=== PATIENT | female | born 1995 | race Caucasian/White ===

== ENCOUNTER → 2016-12-17 | Outpatient (CLI) | payer MEDICAID ==
--- NOTE | 2016-12-17 14:32 | Diagnostic Imaging Report ---
EXAMINATION: OB ultrasound. INDICATION: Small for gestational age. FINDINGS: heart rate is 158 beats per minute. The placenta is posterior. No placenta previa. EARL is 9.8 cm. The position is cephalic. The growth parameters are: Biparietal diameter: 36 weeks one day. Head circumference: 36 weeks 2 days. Abdominal circumference: 37 weeks 2 days. Femur length: 35 weeks 0 day. These average at: 36 weeks 2 days. This is normal for gestational age of 35 weeks and 2 days based on AIDE of 01/19/[address] Parkinson. IMPRESSION: Live intrauterine . Dictated by: Dictated on workstation # [id number]
== END ==
LOC: RAD 12:08
PROVIDERS: ATTEND Obstetrics & Gynecology
DX: O26.843 Uterine size-date discrepancy, third trimester (principal); Z3A.36 36 weeks gestation of pregnancy
CPT/HCPCS: 76805

== ENCOUNTER 2017-01-18 14:00 | Outpatient (CLI) | payer MEDICAID ==
[~2017-01-18] VITALS: Ht 167.6 cm; Wt 85.3 kg
[2017-01-18] MEDS ORDERED: PREN1TAB86 PO (14:17)
[2017-01-18 14:20] VITALS: BP 123/70
[2017-01-18 14:24] LABS: BILIRUBIN,URINE NEGATIVE (NEGATIVE); KETONES,URINE NEGATIVE (NEGATIVE); LEUKOCYTE ESTERASE ,URINE NEGATIVE (NEGATIVE); NITRITE,URINE NEGATIVE (NEGATIVE); PH,URINE 7 (5-9); PROTEIN,URINE NEGATIVE (NEGATIVE); UROBILINOGEN,URINE NORMAL (NORMAL)
[2017-01-18 14:35] LABS: SQUAMOUS EPITHELIAL CELL,UR 0-2 /HPF; WBC,URINE 0-2 /HPF
--- NOTE | 2017-01-21 14:47 | Physician Query-Final Dx ---
BRANDYN WOMACK 01/21/17 1447: Clinic Account Progress/Dx Physician Query: Please give diagnosis Date of Service January 18, 2017 at 14:00 DARRON STILES DO 01/22/17 1802: Clinic Account Progress/Dx DIAGNOSIS: Diagnosis threatened labor, third trimester, not delivered history of hsv BRANDYN WOMACK January 21, 2017 14:47 DARRON STILES DO January 22, 2017 18:02
== END 2017-01-18 16:25 | disposition home or self-care (01) ==
LOC: LDRP 14:00 → WSo 14:00
PROVIDERS: ATTEND Obstetrics & Gynecology
DX: O47.1 False labor at or after 37 completed weeks of gestation (principal); O98.313 Other infections with a predominantly sexual mode of transmission complicating pregnancy, third trimester; A60.09 Herpesviral infection of other urogenital tract; Z3A.39 39 weeks gestation of pregnancy
CPT/HCPCS: 81000; 99213

== ENCOUNTER 2017-01-19 23:14 | Inpatient (IN) | payer MEDICAID ==
[~2017-01-19] VITALS: Ht 167.6 cm; Wt 83.9 kg
[~2017-01-19 23:14] MED LIST: PREN1TAB86 PO
[2017-01-19] MEDS ORDERED: D5 LR IV SOLUTION 1,000 ML IV ONE (23:37)
[2017-01-20] VITALS (51 sets, daily range): BP systolic 115–167; BP diastolic 60–109
[2017-01-20] MEDS ORDERED: NS (IVPB) 50 ML ONE ×2 (00:04→04:51)
[2017-01-20] MEDS ORDERED: AMPICILLIN 2000 MG INJECTION (IM/IV) ONE (00:04)
[2017-01-20] MEDS ORDERED: AMPICILLIN INJECTION 2,000 MG in NS (IVPB) 50 ML IV SCH (00:05)
[2017-01-20] MEDS ORDERED: MINERAL OIL CONCENTRATE 99.9% 15 ML UDC TOP PRN (00:15)
[2017-01-20 00:35] LABS: BILIRUBIN,URINE NEGATIVE (NEGATIVE); KETONES,URINE 2+ (NEGATIVE); LEUKOCYTE ESTERASE ,URINE 1+ (NEGATIVE); NITRITE,URINE NEGATIVE (NEGATIVE); PH,URINE 7 (5-9); PROTEIN,URINE 1+ (NEGATIVE); UROBILINOGEN,URINE NORMAL (NORMAL)
[2017-01-20 01:03] LABS: BASOPHILS % (AUTO) 0 % (0-10); EOSINOPHILS % (AUTO) 0 % (0-10); LYMPHOCYTES # (AUTO) 2.2 X 10^3 (1.0-4.0); LYMPHOCYTES % (AUTO) 16 % (12-44); MEAN CORPUSCULAR HEMOGLOBIN 30 PG (25-34); MEAN CORPUSCULAR HGB CONC 33 G/DL (32-36); MEAN CORPUSCULAR VOLUME 91 FL (80-99); MONOCYTES % (AUTO) 7 % (0-12); NEUTROPHILS # (AUTO) 10.7 X 10^3 (1.8-7.8); NEUTROPHILS % (AUTO) 77 % (42-75); PLATELET COUNT 225 10^3/uL (130-400); RED BLOOD COUNT 4.24 10^6/uL (4.35-5.85); RED CELL DISTRIBUTION WIDTH 13.3 % (10.0-14.5)
[2017-01-20 01:04] LABS: WHITE BLOOD COUNT 13.9 10^3/uL (4.3-11.0)
[2017-01-20] MEDS ORDERED: ACYC400T PO (01:54)
[2017-01-20] MEDS ORDERED: AMPICILLIN 1000 MG INJECTION (IV/IM) ONE (04:51)
[2017-01-20] MEDS: AMPICILLIN INJECTION 1,000 MG in NS (IVPB) 50 ML IV SCH ×3 (04:58→12:15)
[2017-01-20] MEDS ORDERED: fentaNYL INJECTION 100 MCG/2 ML AMP IVP PRN (05:15)
[2017-01-20] MEDS ORDERED: PROMETHAZINE INJ 25 MG/ML (PHENERGAN) AMP IVP PRN (05:15)
[2017-01-20] MEDS ORDERED: CATHETER FLUSH 10 ML SYR IV SCH ×2 (06:00→14:00)
[2017-01-20] MEDS ORDERED: SUFENTA 0.6MCG/ML BUPIVA 0.125 100 ML ONE (07:34)
[2017-01-20] MEDS ORDERED: fentaNYL INJECTION 100 MCG/2 ML AMP ONE (07:43)
[2017-01-20] MEDS ORDERED: LIDOCAINE PF 2% 10 ML (XYLOCAINE) AMP ONE (07:43)
[2017-01-20] MEDS ORDERED: BUPIVACAINE 0.25% 30 ML (SENSORCAINE) VIAL ONE (07:43)
[2017-01-20] MEDS: D5 LR IV SOLUTION 1,000 ML IV SCH ×2 (08:05→09:21)
[2017-01-20] MEDS ORDERED: LACTATED RINGERS 1,000 ML IV ONE ×2 (10:54)
[2017-01-20] MEDS ORDERED: fentaNYL INJECTION 100 MCG/2 ML AMP INJ ONE (11:00)
[2017-01-20] MEDS ORDERED: BUPIVACAINE 0.25% 30 ML (SENSORCAINE) VIAL INJ ONE (11:00)
[2017-01-20] MEDS ORDERED: LIDOCAINE PF 2% 10 ML (XYLOCAINE) AMP INJ ONE (11:00)
[2017-01-20] MEDS ORDERED: EPIDURAL (SUFENTA 0.6MCG/ML BUPIVA 0.125%) 100 ML BAG EPI PRN (11:00)
[2017-01-20] MEDS ORDERED: ONDANSETRON 4 MG/2 ML (SDV) Z0FRAN IV PRN (11:00)
[2017-01-20] MEDS ORDERED: NALOXONE 0.4 MG/ML 1 ML (NARCAN) VIAL IV PRN (11:00)
--- NOTE | 2017-01-20 11:01 | History & Physical-OB ---
OB - Chief Complaint & HPI Date Date of Admission: Date of Admission: January 19, 2017 at 11:33 pm Chief Complaint/History OB-Reason for Admission/Chief: Onset of Labor Hx : 1 Hx Para: 0 Expected Date of Delivery: January 18, 2017 Gestational Age in Weeks: 40 Gestational Age in Days: 2 Other reason for admission: Patient presents with complaint of contractions. She was seen on 01/18/17 and found to not have change in her cervix and was sent home. There was some question of active lesion on the vulva. she has a history of HSV 2. she had an outbreak in early December but did not know that this was HSV. Had serology and + HSV IgG. She has been on Acyclovir since 01/01/17. (36 weeks) for suppression. Has not had another outbreak but felt something in a different area (on the right nearer the anus) but on exam there is no evidence of active lesion. I cannot see a lesion in the area she is concerned about. Admission Nurse Assessment Rev: Yes Other O+, - VDRL NR HIV - HbSAg - Rub I HSV 2 + (family and SO do not know this) Chlamydia +, treated and LEXIE -, genprobe in third trimester negative GBS + Allergies and Home Medications Allergies Coded Allergies: No Known Drug Allergies (Unverified , 01/18/17) Home Medications Acyclovir 400 Mg Tablet, 400 MG PO TID, (Reported) Vit W-Ca,Fe,FA(<1 mg) 1 Each Tablet, 1 TAB PO DAILY, (Reported) OB - History Hx of Present Care: Yes Ultrasounds: Normal mid trimester US Obstetrical Complications: None Medical Complications: None Information Induced Hypertension: No Maternal Gestational Diabetes: No Hemorrhage: No Obstetrical History Hx : 1 Delivery History Adverse Rxn to Tranfusion: No Patient Past Medical History see above Social History/Family History HIV/AIDS: No Recent Infectious Disease Expo: No Sexually Transmitted Disease: Yes (hsv, chlamydia this preg that was tx) Alcohol Use: Denies Use Recreational Drug Use: No Smoking Cessation: Never smoker Significant Family Hx none Immunizations Hepatitis A: Yes Hepatitis B: Yes Tetanus Booster (TDap): Less than 5yrs (11/07/16) Rubella: immune RPR/VDRL: Negative GBS Status: Positive HBsAG: Negative OB - Admission Exam Physical Exam Vitals: Vital Signs 01/20/17 01/20/17 08:00 10:05 Temp 97.8 Pulse 94 Resp 18 B/P (MAP) 116/68 Pulse Ox 99 Heart: Rhythm Normal Lungs: Clear Abdomen: Gravid Extremities: Normal Reflexes: Normal Cervical Dilatation: 3cm Effacement: 75% Station: -2 Membranes: Intact Heart Rate: 140's Accelerations: Accelerations Present Decelerations: No Decelerations Short Term Variability: Present Nursing Home Variability: Average (6-25) Contractions on Admission: 6-10 Minutes Apart Intensity: Moderate Labs Laboratory Tests Test 01/19/17 23:30 01/20/17 00:10 Range/Units Urine Color YELLOW Urine Clarity CLEAR Urine pH 7 5-9 Urine Specific [place] 1.015 L 1.016-1.022 Urine Protein 1+ H NEGATIVE Urine Glucose (UA) NEGATIVE NEGATIVE Urine Ketones 2+ H NEGATIVE Urine Nitrite NEGATIVE NEGATIVE Urine Bilirubin NEGATIVE NEGATIVE Urine Urobilinogen NORMAL NORMAL MG/DL Urine Leukocyte Esterase 1+ H NEGATIVE Urine RBC (Auto) NEGATIVE NEGATIVE Urine RBC NONE /HPF Urine WBC 5-10 H /HPF Urine Squamous Epithelial Cells 5-10 /HPF Urine Crystals NONE /LPF Urine Bacteria FEW H /HPF Urine Casts NONE /LPF Urine Mucus SMALL H /LPF Urine Culture Indicated YES White Blood Count 13.9 H 4.3-11.0 10^3/uL Red Blood Count 4.24 L 4.35-5.85 10^6/uL Hemoglobin 12.7 11.5-16.0 G/DL Hematocrit 38 35-52 % Mean Corpuscular Volume 91 80-99 FL Mean Corpuscular Hemoglobin 30 25-34 PG Mean Corpuscular Hemoglobin Concent 33 32-36 G/DL Red Cell Distribution Width 13.3 10.0-14.5 % Platelet Count 225 130-400 10^3/uL Mean Platelet Volume 13.0 H 7.4-10.4 FL Neutrophils (%) (Auto) 77 H 42-75 % Lymphocytes (%) (Auto) 16 12-44 % Monocytes (%) (Auto) 7 0-12 % Eosinophils (%) (Auto) 0 0-10 % Basophils (%) (Auto) 0 0-10 % Neutrophils # (Auto) 10.7 H 1.8-7.8 X 10^3 Lymphocytes # (Auto) 2.2 1.0-4.0 X 10^3 Monocytes # (Auto) 1.0 0.0-1.0 X 10^3 Eosinophils # (Auto) 0.0 0.0-0.3 10^3/uL Basophils # (Auto) 0.0 0.0-0.1 10^3/uL OB - Assessment/Plan/Diagnosis Assessment Assessment: active labor, group B positive strep Plan Plan: Expectant Management, Induction (Patient of Dr. Parkinson), Other ( Anticipate . Zen Su. Will use nlp this . HIstory of HSV with prophylaxis (on acyclovir). No outbreak since early 01/08. no acute lesions, GBS + (start Ampicillin). ) DARRON STILES DO January 20, 2017 11:01 am
[2017-01-20] MEDS ORDERED: OXYTOCIN/NORMAL SALINE 500 ML IV SCH ×2 (11:06→13:35)
[2017-01-20] MEDS ORDERED: LIDOCAINE/EPI 1%-1:200,000 (XYLOCAINE) 30 ML VIAL ONE (13:14)
--- NOTE | 2017-01-20 13:38 | OB Labor & Delivery Record ---
Vag Delivery Note Vag Delivery Note Date of Delivery: 01/20/17 Preoperative Diagnosis: Sonia Fink is a (22 /Para 1 / 0, Gestational Age 40 2/7 weeks, labor, h/o HSV ( on suppressive treatment; no active lesions), GBS + Postoperative Diagnosis: Same Surgeon: DARRON STILES Anesthesia: epidural Delivery Type: vaginal Findings: Viable male infant, apgars 8/9, weight 8#2oz Lacerations: left anterior vaginal, repaired; right anterior vaginal, not repaired, perineal abrasion, not repaired. Intact placenta with 3 vessel cord. Nuchal cord x 1 reduced , no body cord or shoulder dystocia Estimated Blood Loss: 150 ml Complications: None Condition: Stable Description of Procedure: The patient is a now at 40 2/7 weeks who presented in spontaneous labor. She was admitted and informed consent was obtained. Her labor course was remarkable for ampicillin for GBs prophylaxis, epidural placement, AROM at 7 cm dilation, pitocin augmentation at 9 + cm dilation. She progressed to complete dilatation and began to push. She was then set up for delivery. The infant's head was delivered atraumatically in the AZALEA compound presentation (the left fist at the right shoulder). The shoulders and remainder of the 's body were then delivered without difficulty. The nuchal cord was reduced. Upon delivery, the head was held below the level of the perineum and the mouth and nares were bulb suctioned. The cord was doubly clamped and cut and the was handed off to the pediatric staff. An intact placenta with 3-vessel cord delivered via Ronnie and there was found to be minimal bleeding.~ Vigorous fundal massage was performed and the fundus was found to be firm. IV oxytocin was given. Examination of the vagina and perineum revealed a left anterior vaginal aceration repaired in the usual fashion with 3-0 vicryl suture. Other lacerations, listed above, were not repaired. Following the repair, sponge, instrument and needle counts were correct. Mom and baby were both in stable condition in the labor suite. Vitals - Labs Vital Signs - I&O Vital Signs Date Time Temp Pulse Resp B/P (MAP) Pulse Ox O2 Delivery O2 Flow Rate FiO2 01/20/17 12:15 101 16 128/72 100 01/20/17 12:00 109 16 128/72 100 01/20/17 11:45 90 18 130/84 100 01/20/17 11:30 95 18 130/89 100 01/20/17 11:15 112 18 135/81 99 01/20/17 11:00 92 18 116/64 98 01/20/17 10:45 96 20 121/69 98 01/20/17 10:30 82 20 123/61 98 01/20/17 10:15 85 18 121/68 99 01/20/17 10:05 94 18 116/68 99 01/20/17 10:00 96 18 125/73 100 01/20/17 09:45 99 18 148/81 98 01/20/17 09:30 102 18 127/80 98 01/20/17 09:25 103 18 127/81 98 01/20/17 09:20 93 18 129/80 98 01/20/17 09:00 83 18 124/77 98 01/20/17 08:45 103 18 129/61 97 01/20/17 08:40 81 18 115/65 97 01/20/17 08:35 81 16 120/67 97 01/20/17 08:30 101 16 129/77 99 01/20/17 08:25 91 16 127/84 99 01/20/17 08:20 97 18 120/66 99 01/20/17 08:17 79 18 118/60 99 01/20/17 08:12 98 18 134/68 97 01/20/17 08:08 102 18 134/61 98 01/20/17 08:03 90 18 133/67 98 01/20/17 08:00 97.8 82 20 135/77 98 01/20/17 07:56 92 18 141/76 99 01/20/17 07:52 88 18 145/82 99 01/20/17 07:30 93 18 167/80 01/20/17 03:00 63 18 134/72 01/20/17 02:00 63 18 147/81 01/20/17 01:00 57 18 133/94 01/20/17 00:00 98.7 65 18 131/76 Labs Laboratory Tests 01/19/17 23:30: Urine Color YELLOW, Urine Clarity CLEAR, Urine pH 7, Urine Specific [place] 1.015L, Urine Protein 1+H, Urine Glucose (UA) NEGATIVE, Urine Ketones 2+H, Urine Nitrite NEGATIVE, Urine Bilirubin NEGATIVE, Urine Urobilinogen NORMAL, Urine Leukocyte Esterase 1+H, Urine RBC (Auto) NEGATIVE, Urine RBC NONE, Urine WBC 5-10H, Urine Squamous Epithelial Cells 5-10, Urine Crystals NONE, Urine Bacteria FEWH, Urine Casts NONE, Urine Mucus SMALLH, Urine Culture Indicated YES 01/20/17 00:10: White Blood Count 13.9H, Red Blood Count 4.24L, Hemoglobin 12.7, Hematocrit 38, Mean Corpuscular Volume 91, Mean Corpuscular Hemoglobin 30, Mean Corpuscular Hemoglobin Concent 33, Red Cell Distribution Width 13.3, Platelet Count 225, Mean Platelet Volume 13.0H, Neutrophils (%) (Auto) 77H, Lymphocytes (%) (Auto) 16, Monocytes (%) (Auto) 7, Eosinophils (%) (Auto) 0, Basophils (%) (Auto) 0, Neutrophils # (Auto) 10.7H, Lymphocytes # (Auto) 2.2, Monocytes # (Auto) 1.0, Eosinophils # (Auto) 0.0, Basophils # (Auto) 0.0 DARRON STILES DO January 20, 2017 13:38
[2017-01-20] MEDS ORDERED: BENZOCAINE/MENTHOL (DERMOPLAST) 56 ML CAN TP PRN (13:45)
[2017-01-20] MEDS ORDERED: MEASLES,MUMPS,RUBELLA 1 EA INJ SQ ONE (13:45)
[2017-01-20] MEDS ORDERED: WITCH HAZEL(TUCKS) 40 EA JAR TOP PRN (13:45)
[2017-01-20] MEDS ORDERED: TETANUS,DIPTH,PERTUSS P/F (BOOSTRIX) 0.5 ML VIAL IM ONE (13:45)
[2017-01-20] MEDS ORDERED: DIBUCAINE (NUPERCAINAL) 1% OINT 30 GM TOP PRN (13:45)
[2017-01-20] MEDS: IBUPROFEN 600 MG (MOTRIN) TAB PO SCH ×2 (14:30→19:55)
[2017-01-20] MEDS: DOCUSATE SODIUM 100 MG (COLACE) CAP PO SCH (19:55)
[2017-01-21] MEDS: IBUPROFEN 600 MG (MOTRIN) TAB PO SCH ×4 (01:20→21:50)
[2017-01-21 04:35] VITALS: BP 122/76
[2017-01-21 06:06] LABS: BASOPHILS % (AUTO) 0 % (0-10); EOSINOPHILS # (AUTO) 0.1 10^3/uL (0.0-0.3); EOSINOPHILS % (AUTO) 1 % (0-10); LYMPHOCYTES # (AUTO) 2.1 X 10^3 (1.0-4.0); LYMPHOCYTES % (AUTO) 19 % (12-44); MEAN CORPUSCULAR HEMOGLOBIN 30 PG (25-34); MEAN CORPUSCULAR HGB CONC 32 G/DL (32-36); MEAN CORPUSCULAR VOLUME 93 FL (80-99); MEAN PLATELET VOLUME 12.3 FL (7.4-10.4); MONOCYTES # (AUTO) 0.9 X 10^3 (0.0-1.0); MONOCYTES % (AUTO) 8 % (0-12); NEUTROPHILS % (AUTO) 72 % (42-75); PLATELET COUNT 173 10^3/uL (130-400); RED BLOOD COUNT 3.52 10^6/uL (4.35-5.85); RED CELL DISTRIBUTION WIDTH 13.6 % (10.0-14.5); WHITE BLOOD COUNT 11.2 10^3/uL (4.3-11.0)
[2017-01-21 08:30] VITALS: BP 119/78
[2017-01-21] MEDS: FERROUS SULF 325 MG (IRON) TAB PO SCH (08:37)
[2017-01-21] MEDS: DOCUSATE SODIUM 100 MG (COLACE) CAP PO SCH ×2 (08:38→21:50)
[2017-01-21] MEDS: PRENATAL VITAMIN 1 EA TAB PO SCH (08:38)
[2017-01-21 12:00] VITALS: BP 106/56
[2017-01-21 15:45] VITALS: BP 115/73
[2017-01-21 20:00] VITALS: BP 130/78
[2017-01-22] MEDS: IBUPROFEN 600 MG (MOTRIN) TAB PO SCH ×2 (03:34→10:53)
[2017-01-22 03:39] VITALS: BP 125/86
[2017-01-22 08:15] VITALS: BP 120/76
[2017-01-22] MEDS: PRENATAL VITAMIN 1 EA TAB PO SCH (08:17)
[2017-01-22] MEDS: DOCUSATE SODIUM 100 MG (COLACE) CAP PO SCH (08:17)
[2017-01-22] MEDS: FERROUS SULF 325 MG (IRON) TAB PO SCH (08:17)
[2017-01-22] MEDS ORDERED: IBUP-1773 PO (08:19)
[2017-01-22] MEDS ORDERED: FERR-74 PO (08:19)
[2017-01-22] MEDS ORDERED: DOCU100C37 PO (08:19)
--- NOTE | 2017-01-22 08:20 | Discharge Inst-Women's Service ---
Discharge Inst-Women's Serv Depart Medication/Instructions New, Converted or Re-Newed RX: RX on Chart Final Diagnosis TIUP, active labor, Consults/Follow Up Additional Follow Up: Yes Orders/Referrals [address] Parkinson Activity Activity: Activity as Tolerated Driving Instructions: You May Drive NO SMOKING: NO SMOKING Nothing Inside Vagina: No Douching, No [place], No Tampons Diet Discharge Diet: No Restrictions Symptoms to Report to : Bleeding Excessive, Pain Increased, Fever Over 101 Degrees F, Pain/Pressure in Chest, Vaginal Bleeding Increase, Dizziness/Fainting , Nausea/Vomiting, Shortness of Breath For Any Problems or Questions: Contact Your Physician VIVIANA PARKINSON MD January 22, 2017 08:20
--- NOTE | 2017-01-22 08:24 | Postpartum Progress Note ---
Note Note Day # 2 Subjective: Patient is without complaints. Ambulating, voiding. Tolerating a regular diet without nausea or vomiting. Normal lochia. Pain is well controlled with oral pain medications. Breast feeding. Objective: VS - Last 72 Hours, by Label 01/20/17 01/20/17 01/20/17 01/20/17 00:00 01:00 02:00 03:00 Temp 98.7 Pulse 65 57 63 63 Resp 18 18 18 18 B/P (MAP) 131/76 133/94 147/81 134/72 01/20/17 01/20/17 01/20/17 01/20/17 04:00 05:00 06:00 07:00 Temp 98.1 Pulse 61 65 52 64 Resp 18 18 18 18 B/P (MAP) 141/84 132/78 142/90 150/72 01/20/17 01/20/17 01/20/17 01/20/17 07:30 07:52 07:56 08:00 Temp 97.8 Pulse 93 88 92 82 Resp 18 18 18 20 B/P (MAP) 167/80 145/82 141/76 135/77 Pulse Ox 99 99 98 01/20/17 01/20/17 01/20/17 01/20/17 08:03 08:08 08:12 08:17 Pulse 90 102 98 79 Resp 18 18 18 18 B/P (MAP) 133/67 134/61 134/68 118/60 Pulse Ox 98 98 97 99 01/20/17 01/20/17 01/20/17 01/20/17 08:20 08:25 08:30 08:35 Pulse 97 91 101 81 Resp 18 16 16 16 B/P (MAP) 120/66 127/84 129/77 120/67 Pulse Ox 99 99 99 97 01/20/17 01/20/17 01/20/17 01/20/17 08:40 08:45 09:00 09:20 Pulse 81 103 83 93 Resp 18 18 18 18 B/P (MAP) 115/65 129/61 124/77 129/80 Pulse Ox 97 97 98 98 01/20/17 01/20/17 01/20/17 01/20/17 09:25 09:30 09:45 10:00 Pulse 103 102 99 96 Resp 18 18 18 18 B/P (MAP) 127/81 127/80 148/81 125/73 Pulse Ox 98 98 98 100 01/20/17 01/20/17 01/20/17 01/20/17 10:05 10:15 10:30 10:45 Pulse 94 85 82 96 Resp 18 18 20 20 B/P (MAP) 116/68 121/68 123/61 121/69 Pulse Ox 99 99 98 98 01/20/17 01/20/17 01/20/17 01/20/17 11:00 11:15 11:30 11:45 Pulse 92 112 95 90 Resp 18 18 18 18 B/P (MAP) 116/64 135/81 130/89 130/84 Pulse Ox 98 99 100 100 01/20/17 01/20/17 01/20/17 01/20/17 12:00 12:15 12:30 12:45 Pulse 109 101 81 100 Resp 16 16 18 18 B/P (MAP) 128/72 128/72 129/75 130/76 Pulse Ox 100 100 100 100 01/20/17 01/20/17 01/20/17 01/20/17 13:00 13:15 13:30 13:50 Temp 100.0 100.3 100.2 Pulse 92 181 126 106 Resp 20 20 20 20 B/P (MAP) 153/93 162/109 137/63 132/76 Pulse Ox 100 01/20/17 01/20/17 01/20/17 01/20/17 14:05 14:20 14:35 14:50 Temp 100.1 Pulse 107 105 97 96 Resp 20 20 20 20 B/P (MAP) 134/72 138/71 137/63 128/66 01/20/17 01/20/17 01/20/17 01/21/17 15:20 19:55 23:20 04:35 Temp 100.4 97.4 97.4 97.1 Pulse 97 89 72 70 Resp 20 20 20 20 B/P (MAP) 135/94 116/79 119/71 122/76 Pulse Ox 98 98 99 01/21/17 01/21/17 01/21/17 01/21/17 08:30 12:00 15:45 20:00 Temp 98.0 98.8 97.1 97.9 Pulse 69 73 68 67 Resp 18 18 20 18 B/P (MAP) 119/78 106/56 115/73 130/78 Pulse Ox 100 97 98 100 01/22/17 03:39 Temp 98.0 Pulse 64 Resp 18 B/P (MAP) 125/86 Pulse Ox 100 Physical Exam: General - Alert and oriented, no apparent distress Abdomen - Soft, appropriately tender to palpation, non-distended, fundus firm at umbilicus Extremities - no edema, negative Jennie's bilaterally Assessment: 21 y/o post- day # 2, status post spontaneous vaginal delivery. Recovering well, hemodynamically stable Acute blood loss anemia Hgb 10.6 Elevated BPs in labor but normalized since Plan: Routine care. Encourage breast feeding. Encourage ambulation. Ferrous sulfate supplementation. Plan for discharge today, f/u in 6 weeks Vitals - Labs Vital Signs - I&O Vital Signs Date Time Temp Pulse Resp B/P (MAP) Pulse Ox O2 Delivery O2 Flow Rate FiO2 01/22/17 03:39 98.0 64 18 125/86 100 01/21/17 20:00 97.9 67 18 130/78 100 01/21/17 15:45 97.1 68 20 115/73 98 01/21/17 12:00 98.8 73 18 106/56 97 01/21/17 08:30 98.0 69 18 119/78 100 Labs Microbiology 01/19/17 Urine Culture - Preliminary, Resulted VIVIANA DURÁN MD January 22, 2017 08:23
[2017-01-22 11:05] VITALS: BP 120/76
== END 2017-01-22 11:05 | disposition home or self-care (01) | DRG 774 ==
LOC: WSo 23:14 → LDRP 23:14 → WSo 23:33 → LDRP 23:33
PROVIDERS: ADMIT Obstetrics & Gynecology; ATTEND Obstetrics & Gynecology
PROC: 10E0XZZ Delivery of Products of Conception, External Approach (ICD-10-PCS; principal; 2017-01-20)
PROC: 0HQ9XZZ Repair Perineum Skin, External Approach (ICD-10-PCS; 2017-01-20)
DX: O98.32 Other infections with a predominantly sexual mode of transmission complicating childbirth (principal); A60.09 Herpesviral infection of other urogenital tract; O99.824 Streptococcus B carrier state complicating childbirth; O70.0 First degree perineal laceration during delivery; O69.81X0 Labor and delivery complicated by cord around neck, without compression, not applicable or unspecified; Z37.0 Single live birth; Z3A.40 40 weeks gestation of pregnancy
CPT/HCPCS: 36415; 81000; 85025; 86850; 86900; 86901; 87088; 99212

== ENCOUNTER 2017-05-01 12:26 | Emergency (ER) | payer SELFPAY ==
[~2017-05-01] VITALS: Ht 167.6 cm; Wt 73.5 kg
[~2017-05-01 12:26] MED LIST changes: +ACYC400T PO; +DOCU100C37 PO; +FERR-74 PO; +IBUP-1773 PO
--- NOTE | 2017-05-01 13:23 | ED Cardiac General ---
History of Present Illness General Chief Complaint: Cardiac/General Problems Stated Complaint: CP/HEART RACING/IRREGULAR HEART BEAT/FATUIGUE Nursing Triage Note: PT REPORTS PALPITATIONS INTERMITTENTLY SINCE TUES EVENING. SHE ALSO C/O SOA AND CP. PT IS 3 MOS POST VAGINAL DELIVERY. SHE DENIES PAIN AT THIS TIME. Source: patient Exam Limitations: no limitations History of Present Illness Time seen by provider: 13:19 Initial Comments Patient presents to ER by private conveyance with a chief complaint of approximately 4 days of heart palpitations and feeling like her heart races for a few seconds at a time and now some chest soreness and achiness. She has no primary history of cardiac. She delivered vaginally about 3 months ago after an uneventful . She is not on any kind of control only vitamins and she quit breast-feeding approximate one half weeks ago. She says she had a history of anxiety when she was a child but did not have any formal workup or take anything for it. She's not had any problems since then. No depression anhedonia, or suicidal ideation. She does not smoke drink or use any kind of illicit drugs. She does not have a primary history of coronary disease in her principal family however she has an uncle who had some kind of electrical aberrant heart problem. She's never been worked up for this before. She does not have a PCP as she recently moved from [place] and transferred her OB care to Dr. Aguilar who delivered her. She has a Bartholin's gland cyst for which she had opened up but has another procedure planned in the next week. She has no nausea sweats chills numbness or fatigue. Allergies and Home Medications Allergies Coded Allergies: No Known Drug Allergies (Unverified , 01/18/17) Home Medications Docusate Sodium 100 Mg Capsule, 100 MG PO BID PRN for CONSTIPATION-1ST LINE, # 60 Ref 1 Prescribed by: VIVIANA DURÁN on 01/22/17 0819 Ferrous Sulfate 325 Mg Tablet, 325 MG PO DAILY, #30 Ref 4 Prescribed by: VIVIANA DURÁN on 01/22/17 0819 Ibuprofen 600 Mg Tablet, 600 MG PO Q6H, #30 Ref 1 Prescribed by: VIVIANA DURÁN on 01/22/17 0819 Vit W-Ca,Fe,FA(<1 mg) 1 Each Tablet, 1 TAB PO DAILY, (Reported) Review of Systems Constitutional: No chills, No diaphoresis, No fever, No malaise EENTM: No Eye Pain, No Ear Pain Respiratory: Denies Cough, Denies Orthopnea, Denies Shortness of Air Cardiovascular: Chest Pain (achiness in the center of her chest), Denies Edema , Denies Lightheadedness, Palpitations, Denies Syncope Gastrointestinal: Denies Abdominal Pain, Denies Constipated, Denies Diarrhea, Denies Nausea, Denies Vomiting Genitourinary: See HPI (Bartholin's gland cyst), Denies Burning, Denies Discharge, Denies Drainage Musculoskeletal: No back pain, No joint pain Skin: No pruritus, No rash Psychiatric/Neurological: Denies Headache, Denies Numbness, Denies Paresthesia Endocrine: Denies Intolerance to Cold, Denies Intolerance to Heat, Denies Increased Hunger, Denies Increased Thrist Hematologic/Lymphatic: Denies Blood Clots, Denies Easy Bleeding, Denies Easy Bruising Past Ymkchst-Dgwyvu-Xgnfwc Hx Patient Social History Alcohol Use: Denies Use Recreational Drug Use: No Smoking Status: Never a Smoker 2nd Hand Smoke Exposure: No Recent Foreign Travel: No Contact w/Someone Who Travel: No Recent Infectious Disease Expo: No Recent Hopitalizations: No Physical Abuse: No Sexual Abuse: No Immunizations Up To Date Tetanus Booster (TDap): Less than 5yrs PED Vaccines UTD: Yes Seasonal Allergies Seasonal Allergies: No Surgeries History of Surgeries: No Respiratory History of Respiratory Disorde: No Cardiovascular History of Cardiac Disorders: No Neurological History of Neurological Disord: No Reproductive System Sexually Transmitted Disease: Yes (hsv, chlamydia this preg that was tx) HIV/AIDS: No Female Reproductive Disorders: Denies Genitourinary History of Genitourinary Disor: No Gastrointestinal History of Gastrointestinal Di: No Musculoskeletal History of Musculoskeletal Dis: No Endocrine History of Endocrine Disorders: No HEENT History of HEENT Disorders: No Cancer History of Cancer: No Psychosocial History of Psychiatric Problem: No Suicide Risk Score: 0 Integumentary History of Skin or Integumenta: No Blood Transfusions History of Blood Disorders: No Adverse Reaction to a Blood Tr: No Family Medical History Family Medial History: FH: brain cancer GRANDMOTHER, PATERNAL FH: breast cancer GRANDMOTHER, PATERNAL Gregorio thyroiditis GRANDMOTHER, MATERNAL Physical Exam Vital Signs Vital Sign - Last 12Hours 05/01/17 13:03 Temp 98.3 Pulse 64 Resp 20 B/P (MAP) 124/69 Pulse Ox 100 O2 Delivery Room Air Capillary Refill : Less Than 3 Seconds General Appearance: No Apparent Distress, WD/WN, Anxious HEENT: PERRL/EOMI, Pharynx Normal Neck: Full Range of Motion, Normal Inspection, Non Tender, Supple, No Thyromegaly Respiratory: Chest Non Tender, Lungs Clear, Normal Breath Sounds Cardiovascular: Regular Rate, Rhythm, No Edema, No Gallop, No JVD, No Murmur, Normal Peripheral Pulses Gastrointestinal: Normal Bowel Sounds, Non Tender, Soft Extremity: Normal Capillary Refill, Normal Inspection, Non Tender, No Calf Tenderness, No Pedal Edema Neurologic/Psychiatric: Alert, Oriented x3, Normal Mood/Affect Skin: Normal Color, Warm/Dry Progress/Results/Core Measures Results/Orders Lab Results Laboratory Tests Test 05/01/17 13:43 05/01/17 13:52 Range/Units White Blood Count 6.9 4.3-11.0 10^3/uL Red Blood Count 4.17 L 4.35-5.85 10^6/uL Hemoglobin 12.5 11.5-16.0 G/DL Hematocrit 38 35-52 % Mean Corpuscular Volume 91 80-99 FL Mean Corpuscular Hemoglobin 30 25-34 PG Mean Corpuscular Hemoglobin Concent 33 32-36 G/DL Red Cell Distribution Width 12.2 10.0-14.5 % Platelet Count 280 130-400 10^3/uL Mean Platelet Volume 10.2 7.4-10.4 FL Neutrophils (%) (Auto) 56 42-75 % Lymphocytes (%) (Auto) 32 12-44 % Monocytes (%) (Auto) 9 0-12 % Eosinophils (%) (Auto) 3 0-10 % Basophils (%) (Auto) 1 0-10 % Neutrophils # (Auto) 3.9 1.8-7.8 X 10^3 Lymphocytes # (Auto) 2.2 1.0-4.0 X 10^3 Monocytes # (Auto) 0.6 0.0-1.0 X 10^3 Eosinophils # (Auto) 0.2 0.0-0.3 10^3/uL Basophils # (Auto) 0.0 0.0-0.1 10^3/uL Sodium Level 141 135-145 MMOL/L Potassium Level 3.7 3.6-5.0 MMOL/L Chloride Level 108 H 98-107 MMOL/L Carbon Dioxide Level 25 21-32 MMOL/L Anion Gap 8 5-14 MMOL/L Blood Urea Nitrogen 18 7-18 MG/DL Creatinine 0.76 0.60-1.30 MG/DL Estimat Glomerular Filtration Rate > 60 BUN/Creatinine Ratio 24 Glucose Level 101 70-105 MG/DL Calcium Level 9.0 8.5-10.1 MG/DL Magnesium Level 2.2 1.8-2.4 MG/DL Total Bilirubin 0.6 0.1-1.0 MG/DL Aspartate Amino Transf (AST/SGOT) 26 5-34 U/L Alanine Aminotransferase (ALT/SGPT) 31 0-55 U/L Alkaline Phosphatase 94 40-136 U/L Total Protein 6.5 6.4-8.2 GM/DL Albumin 4.0 3.2-4.5 GM/DL Thyroid Stimulating Hormone (TSH) 0.66 0.35-4.94 UIU/ML Urine Color YELLOW Urine Clarity CLEAR Urine pH 5 5-9 Urine Specific [place] 1.020 1.016-1.022 Urine Protein NEGATIVE NEGATIVE Urine Glucose (UA) NEGATIVE NEGATIVE Urine Ketones NEGATIVE NEGATIVE Urine Nitrite NEGATIVE NEGATIVE Urine Bilirubin NEGATIVE NEGATIVE Urine Urobilinogen NORMAL NORMAL MG/DL Urine Leukocyte Esterase NEGATIVE NEGATIVE Urine RBC (Auto) NEGATIVE NEGATIVE Urine RBC NONE /HPF Urine WBC NONE /HPF Urine Squamous Epithelial Cells RARE /HPF Urine Crystals NONE /LPF Urine Bacteria NEGATIVE /HPF Urine Casts NONE /LPF Urine Mucus NEGATIVE /LPF Urine Culture Indicated NO Urine Test NEGATIVE NEGATIVE Urine Opiates Screen NEGATIVE NEGATIVE Urine Oxycodone Screen NEGATIVE NEGATIVE Urine Methadone Screen NEGATIVE NEGATIVE Urine Propoxyphene Screen NEGATIVE NEGATIVE Urine Barbiturates Screen NEGATIVE NEGATIVE Ur Tricyclic Antidepressants Screen NEGATIVE NEGATIVE Urine Phencyclidine Screen NEGATIVE NEGATIVE Urine Amphetamines Screen NEGATIVE NEGATIVE Urine Methamphetamines Screen NEGATIVE NEGATIVE Urine Benzodiazepines Screen NEGATIVE NEGATIVE Urine Cocaine Screen NEGATIVE NEGATIVE Urine Cannabinoids Screen NEGATIVE NEGATIVE My Orders Orders - LATASHA SHAH Cbc With Automated Diff (05/01/17 13:17) Comprehensive Metabolic Panel (05/01/17 13:17) Drug Screen Stat (Urine) (05/01/17 13:17) Hcg,Qualitative Urine (05/01/17 13:17) Magnesium (05/01/17 13:17) Ua Culture If Indicated (05/01/17 13:17) Chest Pa/Lat (2 View) (05/01/17 13:17) Ekg Tracing (05/01/17 13:17) Monitor-Rhythm Ecg Trace Only (05/01/17 13:17) Thyroid Stimulating Hormone (05/01/17 13:23) Vital Signs/I&O Vital Sign - Last 12Hours 05/01/17 13:03 Temp 98.3 Pulse 64 Resp 20 B/P (MAP) 124/69 Pulse Ox 100 O2 Delivery Room Air Blood Pressure Mean: 87 Progress Note : Time: 13:24 Progress Note Wall anxiety with panic attacks is high on the differential her heart palpitations are likely either PVCs or nothing of significance. Still like to make sure that she does not have any evidence of an aberrant conduction pathway given her family history. We'll also check her thyroid as she is just delivered so this is in the running. We'll check electrolytes in her blood and get a UA to make sure she is not again as well as drug screen. ECG Initial ECG Impression Date: May 01, 2017 Initial ECG Impression Time: 13:32 Initial ECG Rate: 55 Initial ECG Rhythm: S.Pérez Initial ECG Intervals: Normal Initial ECG Impression: Normal Initial ECG Comparisson: No Previous ECG Available Comment No ST elevation or depression Diagnostic Imaging Diagonstic Imaging: Xray Plain Films/CT/US/NM/MRI: chest Comments [facility]. [place], [place] NAME: TEN HUYNH [facility] REC#: [id number] PT STATUS: REG ER : 1995 PHYSICIAN: LATASHA SHAH MD ADMIT DATE: 05/01/17/ER Draft Date of Exam:05/01/17 CHEST PA/LAT (2 VIEW) INDICATION: Tachycardia and shortness of breath. TECHNIQUE: PA and lateral chest obtained at 2:03 p.m. FINDINGS: Heart and mediastinal silhouette are normal in appearance. The lungs are clear. There is no pneumothorax or pleural fluid. IMPRESSION: Negative chest. Dictated on workstation # [id number] Dict: 05/01/17 1418 Trans: 05/01/17 1420 [id number] Interpreted by: NANDO TIPTON MD Electronically signed by: Reviewed: Reviewed by Me Departure Impression Impression: Primary Impression: Intermittent palpitations Disposition: 01 HOME, SELF-CARE Condition: Stable Departure-Patient Inst. Decision time for Depature: 15:08 Referrals: NO,LOCAL PHYSICIAN (PCP/Family) Primary Care Physician Patient Instructions: Palpitations (DC) Add. Discharge Instructions: If you choose to follow this up I would find a primary care physician to further work this up. I will send Vistaril to the pharmacy for you to use every 6 hours as needed if you feel the symptoms or anxiety. Let your doctor know whether or not this medication seemed to help. Vistaril can cause you to be a little sleepy. If you experience new or worsening symptoms you should return to your doctor or the ER which ever is appropriate. All discharge instructions reviewed with patient and/or family. Voiced understanding. Scripts Hydroxyzine Pamoate (Vistaril) 25 Mg Capsule 25 MG PO Q6H Y for ANXIETY, #30 CAP 0 Refills Prov: LATASHA SHAH 05/01/17 LATASHA SHAH May 01, 2017 13:23
[2017-05-01 13:49] LABS: BASOPHILS % (AUTO) 1 % (0-10); EOSINOPHILS # (AUTO) 0.2 10^3/uL (0.0-0.3); EOSINOPHILS % (AUTO) 3 % (0-10); LYMPHOCYTES # (AUTO) 2.2 X 10^3 (1.0-4.0); LYMPHOCYTES % (AUTO) 32 % (12-44); MEAN CORPUSCULAR HEMOGLOBIN 30 PG (25-34); MEAN CORPUSCULAR HGB CONC 33 G/DL (32-36); MEAN CORPUSCULAR VOLUME 91 FL (80-99); MEAN PLATELET VOLUME 10.2 FL (7.4-10.4); MONOCYTES # (AUTO) 0.6 X 10^3 (0.0-1.0); MONOCYTES % (AUTO) 9 % (0-12); NEUTROPHILS # (AUTO) 3.9 X 10^3 (1.8-7.8); NEUTROPHILS % (AUTO) 56 % (42-75); PLATELET COUNT 280 10^3/uL (130-400); RED BLOOD COUNT 4.17 10^6/uL (4.35-5.85); RED CELL DISTRIBUTION WIDTH 12.2 % (10.0-14.5); WHITE BLOOD COUNT 6.9 10^3/uL (4.3-11.0)
[2017-05-01 14:03] LABS: BILIRUBIN,URINE NEGATIVE (NEGATIVE); KETONES,URINE NEGATIVE (NEGATIVE); LEUKOCYTE ESTERASE ,URINE NEGATIVE (NEGATIVE); NITRITE,URINE NEGATIVE (NEGATIVE); PH,URINE 5 (5-9); PROTEIN,URINE NEGATIVE (NEGATIVE); UROBILINOGEN,URINE NORMAL (NORMAL)
[2017-05-01 14:10] LABS: SQUAMOUS EPITHELIAL CELL,UR RARE /HPF
[2017-05-01 14:13] LABS: ALANINE AMINOTRANSFERASE 31 U/L (0-55); ANION GAP 8 MMOL/L (5-14); ASPARTATE AMINO TRANSFERASE 26 U/L (5-34); BILIRUBIN,TOTAL 0.6 MG/DL (0.1-1.0); BLOOD UREA NITROGEN 18 MG/DL (7-18); BUN/CREATININE RATIO 24; CARBON DIOXIDE 25 MMOL/L (21-32); CHLORIDE 108 MMOL/L (98-107); CREATININE SERUM 0.76 MG/DL (0.60-1.30); GFR ESTIMATED > 60; GLUCOSE 101 MG/DL (70-105); MAGNESIUM 2.2 MG/DL (1.8-2.4); POTASSIUM 3.7 MMOL/L (3.6-5.0); SODIUM 141 MMOL/L (135-145); TOTAL PROTEIN 6.5 GM/DL (6.4-8.2)
--- NOTE | 2017-05-01 14:20 | Diagnostic Imaging Report ---
INDICATION: Tachycardia and shortness of breath. TECHNIQUE: PA and lateral chest obtained at 2:03 p.m. FINDINGS: Heart and mediastinal silhouette are normal in appearance. The lungs are clear. There is no pneumothorax or pleural fluid. IMPRESSION: Negative chest. Dictated by: Dictated on workstation # [id number]
[2017-05-01 14:32] LABS: THYROID STIMULATING HORMONE 0.66 UIU/ML (0.35-4.94)
[2017-05-01] MEDS ORDERED: HYDR25CA PO (15:13)
[2017-05-01 15:22] VITALS: BP 122/70
== END 2017-05-01 15:22 | disposition home or self-care (01) ==
LOC: EDUNIT# 12:26 → ER 12:29
DX: R00.2 Palpitations (principal); Z86.19 Personal history of other infectious and parasitic diseases
CPT/HCPCS: 36415; 71020; 80053; 80306; 81000; 83735; 84443; 84703; 85025; 93005; 93041

== ENCOUNTER → 2020-08-09 | Outpatient (CLI) | payer MEDICAID ==
[~2020-08-09] MED LIST changes: +ACET-93 PO; -FERR-74 PO; +FERR325T18 PO; +HYDR25CA PO; +IBUP-844 PO; +PREN1TAB79 PO
--- NOTE | 2020-08-09 19:53 | Diagnostic Imaging Report ---
PROCEDURE: US non-OB pelvis comp/trans. TECHNIQUE: Multiple realtime grayscale images were obtained of the pelvis in various projections, endovaginally. Transabdominal imaging was also performed. INDICATION: bleeding. FINDINGS: There is heterogeneous thickening of the fundal aspect of the endometrium up to 1.2 cm where there is abnormal color Doppler blood flow extending into its bulbous thickened component. Vascularized retained products could not be excluded and are suspected based upon the history in this finding. No fibroid or myometrial mass. There is no pelvic free fluid. The ovaries and adnexa appear normal. No adnexal torsion. IMPRESSION: Bulbous thickening of the fundal aspect of the endometrium somewhat heterogeneous as well as abnormally vascularized with color Doppler flow, suspicious for a component of retained vascularized products, given the history of persistent bleeding. Endometrial polyp or mass could not be excluded. Dictated by: Dictated on workstation # [id number]
== END ==
LOC: RAD 12:00
PROVIDERS: ATTEND Obstetrics & Gynecology
DX: N93.9 Abnormal uterine and vaginal bleeding, unspecified (principal)
CPT/HCPCS: 76830; 76856

== ENCOUNTER 2020-08-10 02:01 | Emergency (ER) | payer MEDICAID ==
[~2020-08-10] VITALS: Ht 167.7 cm; Wt 77.0 kg
--- NOTE | 2020-08-10 02:23 | ED GU-Female ---
General Stated Complaint: BLOOD CLOTS, DIZZY, EXCESSIVE BLEEDING Source: patient Exam Limitations: no limitations History of Present Illness Date Seen by Provider: Aug 10, 2020 Time Seen by Provider: 02:18 Initial Comments Patient is a 25-year-old female who presents to the emergency room today with a chief complaint of abnormal vaginal bleeding. Patient states that she delivered a baby normal spontaneous vaginal delivery on May 23 and has not stopped bleeding since then. Patient states she is breast-feeding well initially thought the bleeding was just related to the breast-feeding however she is co ntinuing to bleed heavily too heavy for tampons. She states she bleeds through tampons and pads and into her clothes on a daily basis. She has cramping. She has been sexually active since her delivery. She denies fevers, chills, burning with urination, abnormal vaginal discharge. She is a . She had a pelvic ultrasound done earlier in the day on Friday. She has follow-up 1 week from yesterday. Patient tried 1 dose of 600 mg ibuprofen today to see if she could alleviate her symptoms. She does complain of dizziness with standing. All other review of systems reviewed and negative except as stated above. Timing/Duration: just prior to arrival Severity/Quality: severe, cramping Location: suprapubic Radiation: none Activities at Onset: none Prior Genitourinary Problems: none Sexual [place] History: less than 2 months ago, single partner Associated Symptoms: denies symptoms Allergies and Home Medications Allergies Coded Allergies: No Known Drug Allergies (Unverified , 05/23/20) Home Medications Acetaminophen 500 Mg Tablet, 1,000 MG PO Q8HR Prescribed by: DARRON STILES on 05/24/20821 Acyclovir 400 Mg Tablet, 400 MG PO DAILY, (Reported) Ibuprofen 600 Mg Tablet, 600 MG PO Q6H Prescribed by: DARRON STILES on 05/24/20821 Vit W-Ca,Fe,FA(<1 mg) 1 Each Tablet, 1 EACH PO DAILY, (Reported) Patient Home Medication List Home Medication List Reviewed: Yes Review of Systems Review of Systems Constitutional: see HPI EENTM: no symptoms reported Respiratory: no symptoms reported Cardiovascular: no symptoms reported Gastrointestinal: no symptoms reported Genitourinary: denies burning, denies discharge; pain (cramping) Musculoskeletal: no symptoms reported Skin: no symptoms reported Past Tkfesqs-Zqfwxq-Byeexs Hx Patient Social History 2nd Hand Smoke Exposure: No Recent Foreign Travel: No Contact w/Someone Who Travel: No Recent Hopitalizations: No Immunizations Up To Date Tetanus Booster (TDap): Less than 5yrs PED Vaccines UTD: Yes Seasonal Allergies Seasonal Allergies: No Past Medical History Surgeries: No Respiratory: No Cardiac: No Neurological: No Female Reproductive Disorders: Denies Sexually Transmitted Disease: Yes (HSV) HIV/AIDS: No Genitourinary: No Gastrointestinal: No Musculoskeletal: No Endocrine: No HEENT: No Cancer: No Psychosocial: No Integumentary: No Blood Disorders: No Adverse Reaction/Blood Tranf: No Family Medical History FH: brain cancer GRANDMOTHER, PATERNAL FH: breast cancer GRANDMOTHER, PATERNAL Gregorio thyroiditis GRANDMOTHER, MATERNAL Physical Exam Vital Signs Vital Signs - First Documented 08/10/20 02:15 Temp 36.8 Pulse 74 Resp 16 B/P (MAP) 123/70 (87) O2 Delivery Room Air Capillary Refill : Height, Weight, BMI Height: 5'6.00" Weight: 162lbs. 0oz. [id number]; 30.27 BMI Method:Stated General Appearance: WD/WN, no apparent distress HEENT: PERRL/EOMI Cardiovascular: regular rate, rhythm, no murmur Respiratory: lungs clear, normal breath sounds, no respiratory distress, no accessory muscle use Gastrointestinal: non tender, soft Pelvic: other (deferred) Back: normal inspection, no CVA tenderness Extremities: normal inspection, no pedal edema, no calf tenderness Neurologic/Psychiatric: no motor/sensory deficits, alert, normal mood/affect, oriented x 3 Skin: normal color, warm/dry Progress/Results/Core Measures Suspected Sepsis SIRS Temperature: Pulse: Respiratory Rate: Laboratory Tests 08/10/20 02:35: White Blood Count 7.9 Blood Pressure / Mean: Laboratory Tests 08/10/20 02:35: Platelet Count 349 Results/Orders Lab Results Laboratory Tests Test 08/10/20 02:35 Range/Units White Blood Count 7.9 4.3-11.0 10^3/uL Red Blood Count 3.47 L 3.80-5.11 10^6/uL Hemoglobin 10.7 L 11.5-16.0 g/dL Hematocrit 33 L 35-52 % Mean Corpuscular Volume 96 80-99 fL Mean Corpuscular Hemoglobin 31 25-34 pg Mean Corpuscular Hemoglobin Concent 32 32-36 g/dL Red Cell Distribution Width 12.8 10.0-14.5 % Platelet Count 349 130-400 10^3/uL Mean Platelet Volume 9.9 9.0-12.2 fL Immature Granulocyte % (Auto) 0 % Neutrophils (%) (Auto) 55 42-75 % Lymphocytes (%) (Auto) 36 12-44 % Monocytes (%) (Auto) 7 0-12 % Eosinophils (%) (Auto) 2 0-10 % Basophils (%) (Auto) 1 0-10 % Neutrophils # (Auto) 4.4 1.8-7.8 10^3/uL Lymphocytes # (Auto) 2.8 1.0-4.0 10^3/uL Monocytes # (Auto) 0.5 0.0-1.0 10^3/uL Eosinophils # (Auto) 0.2 0.0-0.3 10^3/uL Basophils # (Auto) 0.0 0.0-0.1 10^3/uL Immature Granulocyte # (Auto) 0.0 0.0-0.1 10^3/uL Urine Test POSITIVE NEGATIVE Human Chorionic Gonadotropin, Quant 06840 H <5 MIU/ML My Orders Orders - GEOVANY OTERO MD Cbc With Automated Diff (08/10/20 02:31) Hcg,Qualitative Urine (08/10/20 02:31) Hcg,Quantitative (08/10/20 02:57) Vital Signs/I&O 08/10/20 02:15 Temp 36.8 Pulse 74 Resp 16 B/P (MAP) 123/70 (87) O2 Delivery Room Air Capillary Refill : Progress Note : Time: 02:42 Progress Note 25-year-old female presents to the emergency room with dysfunctional uterine bleeding. Patient states that she had an ultrasound done on the . The report has been placed into this dictation. It looks like she may have evidence of retained products of in the fundus of the uterus. I am checking a blood count on her today as well as her test. Plan on likely calling PHOTO FINISH PHOTOGRAPHER on-call to discuss her ultrasound as well as plan of care. 0324 Patient's test is positive therefore will obtain quantitative hCG to further evaluate what is going on in the uterus. Plan on calling Dr. Perez after obtaining this quant. [address] Dr. Perez on-call for Dr. Stiles. He recommends follow-up in the clinic with repeat quantitative hCG and repeat ultrasound. Patient's quant this morning is 37,000. No evidence of viable IUP was demonstrated on the ultrasound from 08/09/2020. Will tell the patient to call the office tomorrow if she has not heard from anybody by the afternoon. She verbalizes understanding of the plan of care and is comfortable with the plan of care. All questions are sought and answered. Patient is discharged home Diagnostic Imaging Diagonstic Imaging: Ultrasound Comments [facility] [place], [place] NAME: TEN HUYNH [facility] REC#: [id number] PT STATUS: REG CLI : 1995 PHYSICIAN: DARRON STILES DO ADMIT DATE: 08/09/20/RAD Draft Date of Exam:08/09/20 US NON OB PELVIS COMP/TRANSVAG PROCEDURE: US non-OB pelvis comp/trans. TECHNIQUE: Multiple realtime grayscale images were obtained of the pelvis in various projections, endovaginally. Transabdominal imaging was also performed. INDICATION: bleeding. FINDINGS: There is heterogeneous thickening of the fundal aspect of the endometrium up to 1.2 cm where there is abnormal color Doppler blood flow extending into its bulbous thickened component. Vascularized retained products could not be excluded and are suspected based upon the history in this finding. No fibroid or myometrial mass. There is no pelvic free fluid. The ovaries and adnexa appear normal. No adnexal torsion. IMPRESSION: Bulbous thickening of the fundal aspect of the endometrium somewhat heterogeneous as well as abnormally vascularized with color Doppler flow, suspicious for a component of retained vascularized products, given the history of persistent bleeding. Endometrial polyp or mass could not be excluded. Dictated on workstation # [id number] Dict: 08/09/201650 Trans: 08/09/201951 [facility] [id number] Interpreted by: JAVIER LAU Electronically signed by: Departure Communication (Admissions) Time/Spoke to Consulting Phy: 03:[address] Perez regarding this patient's positive test and ultrasound from yesterday. He will follow her up in clinic and contact her this afternoon Impression Primary Impression: Abnormal uterine bleeding Additional Impression: Positive test Disposition: HOME, SELF-CARE Condition: Stable Departure-Patient Inst. Decision time for Depature: 04:04 Referrals: PURVI PEREZ MD,LOCAL PHYSICIAN (PCP) Primary Care Physician Patient Instructions: IRREGULAR VAGINAL BLEEDING Add. Discharge Instructions: Drink plenty of fluids to stay well-hydrated. Take an fnfw-[id number]-lvwianf vitamin supplement with iron daily. Please call Dr. PERZE/GO/ESE's office today for a follow-up appointment regarding your positive test and abnormal ultrasound. If you have worsening bleeding especially associated with pain or fever or any other emergent concerning symptoms please come back to the emergency department for reevaluation. Copy Copies To 1: PURVI PEREZ MD, KATHRYN M MD Aug 10, 2020 02:23
[2020-08-10 02:49] LABS: BASOPHILS % (AUTO) 1 % (0-10); EOSINOPHILS # (AUTO) 0.2 10^3/uL (0.0-0.3); EOSINOPHILS % (AUTO) 2 % (0-10); HEMATOCRIT 33 % (35-52); HEMOGLOBIN 10.7 g/dL (11.5-16.0); LYMPHOCYTES # (AUTO) 2.8 10^3/uL (1.0-4.0); LYMPHOCYTES % (AUTO) 36 % (12-44); MEAN CORPUSCULAR HEMOGLOBIN 31 pg (25-34); MEAN CORPUSCULAR HGB CONC 32 g/dL (32-36); MEAN CORPUSCULAR VOLUME 96 fL (80-99); MEAN PLATELET VOLUME 9.9 fL (9.0-12.2); MONOCYTES # (AUTO) 0.5 10^3/uL (0.0-1.0); MONOCYTES % (AUTO) 7 % (0-12); NEUTROPHILS # (AUTO) 4.4 10^3/uL (1.8-7.8); NEUTROPHILS % (AUTO) 55 % (42-75); PLATELET COUNT 349 10^3/uL (130-400); WHITE BLOOD COUNT 7.9 10^3/uL (4.3-11.0)
[2020-08-10 04:17] VITALS: BP 122/72
== END 2020-08-10 04:18 | disposition home or self-care (01) ==
LOC: EDUNIT# 02:01 → ER 02:03
DX: N93.9 Abnormal uterine and vaginal bleeding, unspecified (principal); Z32.01 Encounter for pregnancy test, result positive; Z80.3 Family history of malignant neoplasm of breast; Z80.8 Family history of malignant neoplasm of other organs or systems
CPT/HCPCS: 36415; 84702; 84703; 85025

== ENCOUNTER 2020-08-11 15:37 | Outpatient (CLI) | payer MEDICAID ==
[2020-08-11] VITALS (8 sets, daily range): BP systolic 86–118; BP diastolic 44–72
[~2020-08-11] VITALS: Ht 167.7 cm; Wt 75.9 kg
--- NOTE | 2020-08-11 15:42 | NUR ---
TEN HUYNH presented to unit via AMBULATORY from OFFICE with c/o VAG BLEEDING. TEN HUYNH weighed, gowned, voided, and to bed. TEN HUYNH oriented to bed controls, call light, TV, heat, and A/C controls.
[2020-08-11] MEDS ORDERED: LACTATED RINGERS 1,000 ML IV PRN (16:00)
[2020-08-11 16:12] LABS: BASOPHILS % (AUTO) 1 % (0-10); EOSINOPHILS # (AUTO) 0.1 10^3/uL (0.0-0.3); EOSINOPHILS % (AUTO) 1 % (0-10); HEMATOCRIT 32 % (35-52); HEMOGLOBIN 10.2 g/dL (11.5-16.0); LYMPHOCYTES # (AUTO) 2.3 10^3/uL (1.0-4.0); LYMPHOCYTES % (AUTO) 29 % (12-44); MEAN CORPUSCULAR HEMOGLOBIN 30 pg (25-34); MEAN CORPUSCULAR HGB CONC 32 g/dL (32-36); MEAN CORPUSCULAR VOLUME 96 fL (80-99); MEAN PLATELET VOLUME 10.3 fL (9.0-12.2); MONOCYTES # (AUTO) 0.5 10^3/uL (0.0-1.0); MONOCYTES % (AUTO) 7 % (0-12); NEUTROPHILS # (AUTO) 4.8 10^3/uL (1.8-7.8); NEUTROPHILS % (AUTO) 62 % (42-75); PLATELET COUNT 327 10^3/uL (130-400); WHITE BLOOD COUNT 7.7 10^3/uL (4.3-11.0)
[2020-08-11] MEDS: D5 LR IV SOLUTION 1,000 ML IV SCH ×2 (16:19→17:36)
--- NOTE | 2020-08-11 17:05 | NUR ---
DR. MAIN TO PT'S BEDSIDE.
[2020-08-11] MEDS ORDERED: SEVOFLURANE (ULTANE) 15 ML INHAL SOLN ONE (17:36)
[2020-08-11] MEDS ORDERED: ONDANSETRON 4 MG/2 ML (SDV) Z0FRAN ONE (17:36)
[2020-08-11] MEDS ORDERED: LIDOCAINE PF 2% 5 ML (XYLOCAINE) VIAL ONE (17:36)
[2020-08-11] MEDS ORDERED: proPOfol 200 MG/20 ML (DIPRIVAN) VIAL IV ONE (17:36)
[2020-08-11] MEDS ORDERED: fentaNYL INJECTION 100 MCG/2 ML AMP ONE (17:38)
[2020-08-11] MEDS ORDERED: MIDAZOLAM 2 MG/2 ML (VERSED) VIAL ONE (17:38)
--- NOTE | 2020-08-11 17:40 | History & Physical ---
History and Physical Date Seen by Provider: Aug 11, 2020 Time Seen by Provider: 17:33 This patient is an 25-year-old 2 para 2 white female status post vaginal delivery in April of this year. She reports have been bleeding constantly since her delivery at her 6-week exam she was told that it likely was normal. She has continued to bleed soaking sometimes 2 pads an hour passing large clots frequently and constantly through the day. She denies bowel or bladder issues. She does complain of some chronic headache that has been occurred now over the last 4 days. She denies shortness of breath. She has not been seen for her bleeding since her 6-week exam. She did have an ultrasound 3 days ago that showed thickened echogenic area in her uterus and she also had a quantitative hCG of over 37,000 in the emergency department 2 days ago. I saw this patient in my clinic on this date accomplished transvaginal ultrasound showing 16 or 18 mm debris blood and clot and echogenic tissue in the endometrial cavity. She passed probably 60 cc of clot during the exam and continue to bleed fairly briskly. She was sent to women services for observation and for scheduling for a D&C. Surgical risks complications recovery and follow-up have been fully discussed with her including the potential for loss of her uterus should bleeding be excessive and not be able controlled medically or surgically short of doing a hysterectomy. Allergies are none Medications are vitamin Tylenol and Motrin Medical social and surgical history are negative except for a foot surgery and h er to delivery which were vaginal Family history is noncontributory Social history patient is a non-smoker nondrinker no history of drug or alcohol abuse HEENT exam is normal Neck is supple no lymphadenopathy no thyromegaly Abdomen is nontender nondistended. There are no masses palpable Extremities show no clubbing or cyanosis Pelvic exam shows normal internal/external genitalia with the vaginal vault filled with blood and clot. The blood clot was removed transvaginal ultrasound was performed patient passed another clot of approximately 40 cc on completion of the ultrasound Ultrasound was described above Hemoglobin on this date was 9.9 whereas in the emergency department 2 days ago it was 11 Quantitative hCG 2 days ago was over 37,000 today on repeat it is likely over 32,000 Assessment and plan likely retained products of conception versus GTN versus molar versus other. We had lengthy discussion regarding treatment options and at this point favor surgical evacuation of the uterus with close follow-up in clinic to see that the hCGs got a negative. Retained products of conception and menometrorrhagia Allergies and Home Medications Allergies Coded Allergies: No Known Drug Allergies (Unverified , 05/23/20) Home Medications Acetaminophen 500 Mg Tablet, 1,000 MG PO Q8HR Prescribed by: DARRON STILES on 05/24/20 08 Acyclovir 400 Mg Tablet, 400 MG PO DAILY, (Reported) Ibuprofen 600 Mg Tablet, 600 MG PO Q6H Prescribed by: DARRON STILES on 05/24/20 08 Vit W-Ca,Fe,FA(<1 mg) 1 Each Tablet, 1 EACH PO DAILY, (Reported) Patient Home Medication List Home Medication List Reviewed: Yes PURVI MAIN MD Aug 11, 2020 17:40
--- NOTE | 2020-08-11 17:43 | Discharge Inst-Surgical ---
Discharge Inst-Surgical Depart Medication/Instructions New, Converted or Re-Newed RX: Other Consults/Follow Up Patient Instructions: As directed Orders & Referrals Follow Up Appt: Return to clinic with Dr. Perez on Friday, August 14, 2020 at 9:30 AM for follow-up and repeat quantitative hCG Activity: Rest for 24 hours, than as tolerated. Diet: As tolerated. shower or tub bathe as desired. No driving for 24 hours, no alcoholic beverages for 24 hours, and nothing per vagina (no tampons, douching, or intercoarse) for 2 weeks. Patient to return to the clinic as soon as possible for: Temperature greater than 101F, Severe Pain, Foul discharge from incision or vagina, Excessive Bleeding (more than a period). Activity Activity as Tolerated: No Diet Discharge Diet: No Restrictions PURVI PEREZ MD Aug 11, 2020 17:43
--- NOTE | 2020-08-11 17:44 | Progress Note-Pre Operative ---
Pre-Operative Progress Note H&P Reviewed The H&P was reviewed, patient examined and no changes noted. Date Seen by Provider: Aug 11, 2020 Time Seen by Provider: 17:44 Date H&P Reviewed: Aug 11, 2020 Time H&P Reviewed: 17:44 Pre-Operative Diagnosis: Retained products of conception/menometrorrhagia PURVI MAIN MD Aug 11, 2020 17:44
[2020-08-11] MEDS ORDERED: KETOROLAC 30 MG/ML VIAL IVP ONE ×2 (17:45→18:45)
[2020-08-11] MEDS ORDERED: MEPERIDINE (DEMEROL) INJ 100 MG/ML IM ONE (17:45)
[2020-08-11] MEDS ORDERED: PROMETHAZINE INJ 25 MG/ML (PHENERGAN) AMP IM ONE (17:45)
[2020-08-11] MEDS ORDERED: D5 LR IV SOLUTION 1,000 ML IV SCH (17:45)
[2020-08-11] MEDS ORDERED: HYDROcodone/APAP 10 MG/325 MG (LORTAB) TAB PO PRN (17:45)
[2020-08-11] MEDS ORDERED: ONDANSETRON 4 MG/2 ML (SDV) Z0FRAN IVP PRN ×2 (17:45→18:45)
--- NOTE | 2020-08-11 17:45 | Progress Note-Post Operative ---
Post-Operative Progess Note Surgeon (s)/Pull Out Operator (s) Surgeon PURVI MAIN MD Pull Out Operator: None Pre-Operative Diagnosis Retained products of conception/menometrorrhagia Post-Operative Diagnosis Same with pathology pending Procedure & Operative Findings Date of Procedure 08/11/20 Procedure Performed/Findings Suction D&C Anesthesia Type GETA Estimated Blood Loss Estimated blood loss (mL): 50 - 100 cc - Specimens/Packing Specimens Removed Uterine contents/products of conception PURVI MAIN MD Aug 11, 2020 17:45
--- NOTE | 2020-08-11 17:57 | NUR ---
PT TRANSFERRED FROM -[facility] TO OR VIA BED IN STABLE CONDITION ACC BY ELLY ARAMBULA RN AND ANESTHESIA STUDENT.
[2020-08-11] MEDS ORDERED: PHENYLEPHRINE 100 MCG/ML 10 ML (ANESTHESIA) SYR ONE (18:13)
--- NOTE | 2020-08-11 18:43 | Anesthesia-General Post-Op ---
General Patient Condition Mental Status/LOC: Same as Preop Cardiovascular: Satisfactory Nausea/Vomiting: Absent Respiratory: Satisfactory Pain: Controlled Complications: Absent Post Op Complications Complications None Follow Up Care/Instructions Patient Instructions None needed. Anesthesia/Patient Condition Patient Condition Patient is doing well, no complaints, stable vital signs, no apparent adverse anesthesia problems. No complications reported per nursing. TIANA ARGUETA CRNA Aug 11, 2020 18:43
[2020-08-11] MEDS ORDERED: PROMETHAZINE INJ 25 MG/ML (PHENERGAN) AMP IVP ONE (18:45)
[2020-08-11] MEDS ORDERED: morphine INJ 10 MG/ML 1ML (SYR OR VIAL) IVP ONE (18:45)
[2020-08-11] MEDS ORDERED: MEPERIDINE (DEMEROL) INJ 50 MG/ML IVP ONE (18:45)
[2020-08-11] MEDS ORDERED: fentaNYL INJECTION 100 MCG/2 ML AMP IVP ONE (18:45)
--- NOTE | 2020-08-11 19:35 | NUR ---
To room 301 via bed by Efren Bee RN. Patient awake and alert, VSS. Denies pain and complaints. Denies nausea, requests dinner tray.
--- NOTE | 2020-08-12 03:00 | NUR ---
vs taken. asking for breast pump. breast pump set up for pt.
[2020-08-12 03:33] VITALS: BP 95/54
--- NOTE | 2020-08-12 03:43 | OPERATIVE REPORT ---
DATE OF SERVICE: 08/11/2020 PREOPERATIVE DIAGNOSIS: Retained placenta at approximately 12 weeks with hemorrhage. POSTOPERATIVE DIAGNOSIS: Retained placenta at approximately 12 weeks with hemorrhage with pathology pending. OPERATIVE PROCEDURE: D and C. OPERATIVE DESCRIPTION: With the patient in the supine position under satisfactory general anesthesia, she was repositioned in dorsal lithotomy position in the formerly named [facility] stirrups and prepped and draped in the usual fashion for vaginal surgery. Weighted speculum placed in the posterior fornix of vagina. There were several large clots in the vagina. They were evacuated out and then the cervix was exposed and grasped anteriorly with single tooth tenaculum. There was a large clot passing through the cervix that was extracted as well. The uterus was sounded to 12 cm with uterine sound. The cervix was then serially dilated with Sterling dilators to a #20 Sterling and then a #19 Hegar dilator was used for the last step in dilation. A curved suction curette was then introduced into the uterine cavity and the endometrial cavity suction curettaged in all 4 quadrants with removal of moderate amount of blood clot, fibrinous tissue and debris and some fragments of what appeared to be trophoblastic tissue. The endometrial cavity was now sharply curettaged in all 4 quadrants with removal of an additional aliquot of heterogeneous material and tissue. The endometrial cavity was suction curettaged final time and then wiped clean with 4 x 4 on a uterine packing forceps. The tenaculum was now removed from the cervix. There was no bleeding after touching one of the sites with a single silver nitrate stick. There was minimal oozing from the cervical os at this point. Sponge and needle counts were correct. Blood loss was between 50 and 100 mL not counting that she had lost as spontaneously pass clots which was in the range of several 100 mL. The patient was uneventfully awakened from her general anesthesia now and transferred to recovery room in stable condition with plans for discharge home PAR. Job ID: [id number] DocumentID: [id number] Dictated Date: 08/11/2020 22:30:54 [employer] Date: 08/12/2020 03:43:03 Dictated By: PURVI MAIN MD
[2020-08-12 06:56] VITALS: BP 87/46
--- NOTE | 2020-08-12 07:17 | NUR ---
Report given to URI Lisa
--- NOTE | 2020-08-12 07:30 | NUR ---
Dr mcfadden to see patient and review plan of care.
--- NOTE | 2020-08-12 07:40 | Progress Note ---
Standard Progress Note Progress Notes/Assess & Plan Date Seen by a Provider: Aug 12, 2020 Time Seen by a Provider: 07:38 Progress/Assessment & Plan Patient is without complaint. She is ambulating, voiding, tolerating oral intake and has good pain control. She reports minimal bleeding through the night. Vital Signs Date Time Temp Pulse Resp B/P (MAP) Pulse Ox O2 Delivery O2 Flow Rate FiO2 08/12/20 06:56 36.3 57 18 87/46 (60) 98 Room Air 08/12/20 03:33 36.5 66 18 95/54 (68) 97 Room Air 08/11/20 19:40 35.3 61 20 105/57 (73) 100 Room Air 08/11/20 19:27 36.6 22 105/58 (74) 100 Room Air 08/11/20 19:25 0 08/11/20 19:20 16 115/54 (74) 97 Room Air 08/11/20 19:19 0 08/11/20 19:10 25 106/56 (73) 100 Room Air 08/11/20 19:10 0 08/11/20 19:00 13 102/64 (77) 100 OxyMask 3 08/11/20 18:56 7 08/11/20 18:50 15 86/49 (61) 100 OxyMask 7 08/11/20 18:41 7 08/11/20 18:41 36.6 14 86/44 (58) 98 OxyMask 7 08/11/20 16:03 36.9 83 16 98 Room Air I & O 08/12/20 07:00 Intake Total 1000 ml Output Total 50 ml Balance 950 ml Vital signs are stable. Patient is afebrile. The abdomen is benign. The fundus is nonpalpable in the. Extremities show no clubbing or cyanosis. There is no Homans' sign. Assessment and plan postoperative day #1 status post D&C for retained placenta at 3+ months after delivery. Plan is for discharge home with follow-up in clinic. We will recheck a quantitative hCG before discharge Final Diagnosis Retained placenta PURVI MAIN MD Aug 12, 2020 07:40
[2020-08-12 08:08] VITALS: BP 103/51
--- NOTE | 2020-08-12 08:50 | NUR ---
Discharge instructions explained, signed and copy to patient. pt verbalized understanding of instructions. Discussed with pt medications for home use and pt verbalized understanding. pt eating breakfast tray
[2020-08-12 09:50] VITALS: BP 103/51
--- NOTE | 2020-08-12 09:50 | NUR ---
Dr Perez notified of HCG lab
--- NOTE | 2020-08-12 09:50 | NUR ---
Discharged to home. Ambulates self downstairs to private vehicle with belongings in hand. Accompanied by RN
== END 2020-08-12 09:50 | disposition home or self-care (01) ==
LOC: LDRP 15:37 → WSo 15:37
PROVIDERS: ATTEND Obstetrics & Gynecology
DX: O72.0 Third-stage hemorrhage (principal); Z20.828 Contact with and (suspected) exposure to other viral communicable diseases
CPT/HCPCS: 84702; 85025; 86850; 86900; 86901; U0002; 36415; 87635

== ENCOUNTER → 2020-09-06 | Outpatient (CLI) | payer OTHER ==
[~2020-09-06] MED LIST changes: +CATHETER FLUSH 10 ML SYR IV PRN; +HOLD METFORMIN - RECEIVED CONTRAST 20 ML VIAL IV SCH; +IOHEXOL 350 MG/ML 100 ML (OMNIPAQUE 350) VIAL IV ONE; +NS 100 ML (IVPB) BAG IV ONE
--- NOTE | 2020-09-06 14:13 | Diagnostic Imaging Report ---
EXAMINATION: CT Chest with intravenous contrast, CT Abdomen and Pelvis without and with intravenous contrast. TECHNIQUE: Pre and post intravenous contrast axial imaging of the abdomen and pelvis and post contrast axial imaging of the chest were performed. All CT scans use one or more of the following dose optimizing techniques: automated exposure control, MA and/or KvP adjustment based on a patient size and exam type, or iterative reconstruction. HISTORY: Malignant neoplasm of placenta. COMPARISON: None available. FINDINGS: There is no edema or pneumonia. No pleural effusion. No pneumothorax. No suspicious nodules. There is no axillary or supraclavicular lymphadenopathy. There is no mediastinal lymphadenopathy. There is normal-appearing thymus in the anterior mediastinum. Heart size is normal. There are no coronary artery calcifications. No pericardial effusion. Aorta is normal in caliber. The liver is normal without focal lesion. There is no biliary ductal dilation. Gallbladder is normal. Pancreas is normal. Spleen is normal. Adrenal glands are normal. The kidneys are normal. There is no hydronephrosis. Urinary bladder is normal. Uterus is retroflexed. Adnexa are normal for age. Visualized bowel is normal in caliber without obstruction or inflammation. No free fluid or air. No abdominal or pelvic lymphadenopathy. Aorta is normal in caliber without aneurysm. There are no suspicious osseous lesions. IMPRESSION: 1. No metastatic disease seen in the chest, abdomen or pelvis. Dictated by: Dictated on workstation # [id number]
== END ==
LOC: RAD 12:45
PROVIDERS: ATTEND Obstetrics & Gynecology
DX: C58 Malignant neoplasm of placenta (principal)
CPT/HCPCS: 71260; 74178

== ENCOUNTER → 2020-09-15 | Outpatient (CLI) | payer MEDICAID, OTHER ==
[~2020-09-15] MED LIST changes: -CATHETER FLUSH 10 ML SYR IV PRN; +GADOBUTROL 7.5 MMOL/7.5 ML (GADAVIST) VIAL IV ONE; -HOLD METFORMIN - RECEIVED CONTRAST 20 ML VIAL IV SCH; -IOHEXOL 350 MG/ML 100 ML (OMNIPAQUE 350) VIAL IV ONE; -NS 100 ML (IVPB) BAG IV ONE
--- NOTE | 2020-09-15 11:54 | Diagnostic Imaging Report ---
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 No head complaints. EXAM: MRI of the brain performed without and with 7 cc of Gadavist IV contrast. Sequences include axial DWI, ADC map, axial gradient echo, axial T2, axial FLAIR, axial T1, axial T1 post IV contrast, coronal T1 fat-sat post IV contrast, and sagittal T1 post IV contrast. COMPARISON: None. FINDINGS: There is no evidence of acute cerebral infarct, intracranial hemorrhage, or gross mass effect. The brain parenchymal volume appears appropriate for patient's age. There is normal harris-white matter distinction. There is no significant midline shift or herniation. The [place] vascular structures show no gross abnormality as visualized. The pituitary gland, sella, and suprasellar regions are unremarkable as visualized. There is no evidence of hydrocephalus. The basal cisterns are unremarkable. The skull, extracranial soft tissue, and orbits are unremarkable. The paranasal sinuses are unremarkable. Temporal bones show no significant abnormality. IMPRESSION: 1: Unremarkable MRI of the brain. There is no evidence of metastatic disease. Dictated by: Dictated on workstation # [id number]
== END ==
LOC: RAD 10:43
PROVIDERS: ATTEND Internal Medicine Hematology & Oncology
DX: C58 Malignant neoplasm of placenta (principal)
CPT/HCPCS: 70553

== ENCOUNTER → 2020-09-25 | Outpatient (CLI) | payer MEDICAID ==
[~2020-09-25] MED LIST changes: -GADOBUTROL 7.5 MMOL/7.5 ML (GADAVIST) VIAL IV ONE
[2020-09-25 14:00] LABS: HEMATOCRIT 38 % (35-52); HEMOGLOBIN 12.2 G/DL (11.5-16.0); LYMPHOCYTES % (AUTO) 37 % (12-44); MEAN CORPUSCULAR HEMOGLOBIN 30 PG (25-34); MEAN CORPUSCULAR HGB CONC 33 G/DL (32-36); MEAN CORPUSCULAR VOLUME 92 FL (80-99); MEAN PLATELET VOLUME 10.5 FL (7.4-10.4); NEUTROPHILS % (AUTO) 58 % (42-75); PLATELET COUNT 288 10^3/uL (130-400); WHITE BLOOD COUNT 4.6 10^3/uL (4.3-11.0)
[2020-09-25 14:01] LABS: BASOPHILS % (AUTO) 1 % (0-10); EOSINOPHILS # (AUTO) 0.1 10^3/uL (0.0-0.3); EOSINOPHILS % (AUTO) 2 % (0-10); LYMPHOCYTES # (AUTO) 1.7 X 10^3 (1.0-4.0); MONOCYTES # (AUTO) 0.1 X 10^3 (0.0-1.0); MONOCYTES % (AUTO) 2 % (0-12); NEUTROPHILS # (AUTO) 2.7 X 10^3 (1.8-7.8)
[2020-09-25 14:07] LABS: BUN/CREATININE RATIO 16; CALCIUM 9.5 MG/DL (8.5-10.1); CARBON DIOXIDE 25 MMOL/L (21-32); CHLORIDE 106 MMOL/L (98-107); CREATININE SERUM 0.86 MG/DL (0.60-1.30); GFR ESTIMATED > 60; GLUCOSE 94 MG/DL (70-105); POTASSIUM 4.1 MMOL/L (3.6-5.0); SODIUM 140 MMOL/L (135-145)
== END ==
LOC: LAB FS 13:33
PROVIDERS: ATTEND Nurse Practitioner Adult Health
DX: O43.899 Other placental disorders, unspecified trimester (principal); Z3A.00 Weeks of gestation of pregnancy not specified
CPT/HCPCS: 36415; 80048; 85025

== ENCOUNTER → 2020-10-12 | Outpatient (CLI) | payer MEDICAID ==
[2020-10-12 12:56] LABS: HEMATOCRIT 37 % (35-52); MEAN CORPUSCULAR HEMOGLOBIN 30 PG (25-34); MEAN CORPUSCULAR HGB CONC 33 G/DL (32-36); MEAN CORPUSCULAR VOLUME 91 FL (80-99); MEAN PLATELET VOLUME 10.4 FL (7.4-10.4); PLATELET COUNT 237 10^3/uL (130-400); WHITE BLOOD COUNT 3.3 10^3/uL (4.3-11.0)
[2020-10-12 12:57] LABS: BASOPHILS % (AUTO) 0 % (0-10); EOSINOPHILS # (AUTO) 0.1 10^3/uL (0.0-0.3); EOSINOPHILS % (AUTO) 4 % (0-10); LYMPHOCYTES # (AUTO) 1.5 X 10^3 (1.0-4.0); LYMPHOCYTES % (AUTO) 46 % (12-44); MONOCYTES # (AUTO) 0.1 X 10^3 (0.0-1.0); MONOCYTES % (AUTO) 4 % (0-12); NEUTROPHILS # (AUTO) 1.5 X 10^3 (1.8-7.8); NEUTROPHILS % (AUTO) 46 % (42-75); SODIUM 143 MMOL/L (135-145)
[2020-10-12 12:58] LABS: ALANINE AMINOTRANSFERASE 19 U/L (0-55); ALBUMIN 4.4 GM/DL (3.2-4.5); ALKALINE PHOSPHATASE 92 U/L (40-136); BILIRUBIN,TOTAL 0.2 MG/DL (0.1-1.0); BUN/CREATININE RATIO 18; CALCIUM 9.5 MG/DL (8.5-10.1); CARBON DIOXIDE 24 MMOL/L (21-32); CHLORIDE 108 MMOL/L (98-107); CREATININE SERUM 0.85 MG/DL (0.60-1.30); GFR ESTIMATED > 60; GLUCOSE 102 MG/DL (70-105); TOTAL PROTEIN 7.2 GM/DL (6.4-8.2)
== END ==
LOC: LAB FS 11:57
PROVIDERS: ATTEND Nurse Practitioner Adult Health
DX: Z51.11 Encounter for antineoplastic chemotherapy (principal); C58 Malignant neoplasm of placenta
CPT/HCPCS: 36415; 80053; 84702; 85025

== ENCOUNTER 2020-10-30 14:18 | Outpatient (RCR) | payer MEDICAID, OTHER ==
[2020-09-14 10:15] LABS: ALANINE AMINOTRANSFERASE 31 U/L (0-55); ALBUMIN 4.3 GM/DL (3.2-4.5); ALKALINE PHOSPHATASE 86 U/L (40-136); BILIRUBIN,TOTAL 0.5 MG/DL (0.1-1.0); BUN/CREATININE RATIO 22; CALCIUM 9.3 MG/DL (8.5-10.1); CARBON DIOXIDE 25 MMOL/L (21-32); CHLORIDE 108 MMOL/L (98-107); CREATININE SERUM 0.83 MG/DL (0.60-1.30); GFR ESTIMATED > 60; GLUCOSE 83 MG/DL (70-105); POTASSIUM 3.7 MMOL/L (3.6-5.0); SODIUM 142 MMOL/L (135-145); TOTAL PROTEIN 6.9 GM/DL (6.4-8.2)
[2020-09-18 15:32] LABS: BASOPHILS # (AUTO) 0.1 10^3/uL (0.0-0.1); BASOPHILS % (AUTO) 1 % (0-10); EOSINOPHILS # (AUTO) 0.1 10^3/uL (0.0-0.3); EOSINOPHILS % (AUTO) 2 % (0-10); HEMATOCRIT 36 % (35-52); HEMOGLOBIN 11.4 g/dL (11.5-16.0); LYMPHOCYTES # (AUTO) 2.1 10^3/uL (1.0-4.0); LYMPHOCYTES % (AUTO) 30 % (12-44); MEAN CORPUSCULAR HEMOGLOBIN 30 pg (25-34); MEAN CORPUSCULAR HGB CONC 32 g/dL (32-36); MEAN CORPUSCULAR VOLUME 95 fL (80-99); MEAN PLATELET VOLUME 10.5 fL (9.0-12.2); MONOCYTES # (AUTO) 0.6 10^3/uL (0.0-1.0); MONOCYTES % (AUTO) 9 % (0-12); NEUTROPHILS # (AUTO) 4.1 10^3/uL (1.8-7.8); NEUTROPHILS % (AUTO) 59 % (42-75); PLATELET COUNT 343 10^3/uL (130-400); WHITE BLOOD COUNT 7.1 10^3/uL (4.3-11.0)
[2020-10-02 16:01] LABS: BASOPHILS % (AUTO) 0 % (0-10); EOSINOPHILS # (AUTO) 0.1 10^3/uL (0.0-0.3); EOSINOPHILS % (AUTO) 2 % (0-10); HEMATOCRIT 36 % (35-52); HEMOGLOBIN 11.7 g/dL (11.5-16.0); LYMPHOCYTES # (AUTO) 1.7 10^3/uL (1.0-4.0); LYMPHOCYTES % (AUTO) 34 % (12-44); MEAN CORPUSCULAR HEMOGLOBIN 30 pg (25-34); MEAN CORPUSCULAR HGB CONC 32 g/dL (32-36); MEAN CORPUSCULAR VOLUME 93 fL (80-99); MEAN PLATELET VOLUME 10.5 fL (9.0-12.2); MONOCYTES # (AUTO) 0.4 10^3/uL (0.0-1.0); MONOCYTES % (AUTO) 8 % (0-12); NEUTROPHILS # (AUTO) 2.8 10^3/uL (1.8-7.8); NEUTROPHILS % (AUTO) 56 % (42-75); PLATELET COUNT 216 10^3/uL (130-400); WHITE BLOOD COUNT 4.9 10^3/uL (4.3-11.0)
[2020-10-02 16:32] LABS: ALANINE AMINOTRANSFERASE 25 U/L (0-55); ALBUMIN 4.3 GM/DL (3.2-4.5); ALKALINE PHOSPHATASE 85 U/L (40-136); BILIRUBIN,TOTAL 0.4 MG/DL (0.1-1.0); BUN/CREATININE RATIO 21; CALCIUM 9.2 MG/DL (8.5-10.1); CARBON DIOXIDE 22 MMOL/L (21-32); CHLORIDE 109 MMOL/L (98-107); CREATININE SERUM 0.84 MG/DL (0.60-1.30); GFR ESTIMATED > 60; GLUCOSE 83 MG/DL (70-105); SODIUM 140 MMOL/L (135-145)
[2020-10-23 16:17] LABS: BASOPHILS % (AUTO) 0 % (0-10); EOSINOPHILS # (AUTO) 0.1 10^3/uL (0.0-0.3); EOSINOPHILS % (AUTO) 2 % (0-10); HEMATOCRIT 35 % (35-52); HEMOGLOBIN 11.3 g/dL (11.5-16.0); LYMPHOCYTES # (AUTO) 1.1 10^3/uL (1.0-4.0); LYMPHOCYTES % (AUTO) 48 % (12-44); MEAN CORPUSCULAR HEMOGLOBIN 30 pg (25-34); MEAN CORPUSCULAR HGB CONC 33 g/dL (32-36); MEAN CORPUSCULAR VOLUME 92 fL (80-99); MONOCYTES # (AUTO) 0.1 10^3/uL (0.0-1.0); MONOCYTES % (AUTO) 4 % (0-12); NEUTROPHILS # (AUTO) 1.1 10^3/uL (1.8-7.8); NEUTROPHILS % (AUTO) 46 % (42-75); PLATELET COUNT 326 10^3/uL (130-400); WHITE BLOOD COUNT 2.3 10^3/uL (4.3-11.0)
[2020-10-23 16:39] LABS: BUN/CREATININE RATIO 16; CALCIUM 8.9 MG/DL (8.5-10.1); CARBON DIOXIDE 22 MMOL/L (21-32); CHLORIDE 106 MMOL/L (98-107); CREATININE SERUM 0.82 MG/DL (0.60-1.30); GFR ESTIMATED > 60; GLUCOSE 86 MG/DL (70-105); POTASSIUM 4.3 MMOL/L (3.6-5.0); SODIUM 138 MMOL/L (135-145)
[~2020-10-30 14:18] MED LIST changes: -ACYC400T PO; +ACYC400T21 PO; +METHOTREXATE 25 MG/ML IM SCH; +TBO-FILGRASTIM 480 MCG/0.8 ML (GRANIX) CANCER CTR SQ ONE
[2020-10-30 14:40] LABS: BASOPHILS % (AUTO) 0 % (0-10); EOSINOPHILS # (AUTO) 0.1 10^3/uL (0.0-0.3); EOSINOPHILS % (AUTO) 2 % (0-10); HEMATOCRIT 38 % (35-52); HEMOGLOBIN 11.9 g/dL (11.5-16.0); LYMPHOCYTES # (AUTO) 1.7 10^3/uL (1.0-4.0); LYMPHOCYTES % (AUTO) 26 % (12-44); MEAN CORPUSCULAR HEMOGLOBIN 29 pg (25-34); MEAN CORPUSCULAR HGB CONC 32 g/dL (32-36); MEAN CORPUSCULAR VOLUME 92 fL (80-99); MEAN PLATELET VOLUME 9.8 fL (9.0-12.2); MONOCYTES # (AUTO) 1.1 10^3/uL (0.0-1.0); MONOCYTES % (AUTO) 17 % (0-12); NEUTROPHILS # (AUTO) 3.5 10^3/uL (1.8-7.8); NEUTROPHILS % (AUTO) 55 % (42-75); PLATELET COUNT 238 10^3/uL (130-400); WHITE BLOOD COUNT 6.4 10^3/uL (4.3-11.0)
[2020-10-30 15:03] LABS: ALANINE AMINOTRANSFERASE 24 U/L (0-55); ALBUMIN 4.3 GM/DL (3.2-4.5); ALKALINE PHOSPHATASE 84 U/L (40-136); BILIRUBIN,TOTAL 0.2 MG/DL (0.1-1.0); BUN/CREATININE RATIO 18; CALCIUM 9.1 MG/DL (8.5-10.1); CARBON DIOXIDE 24 MMOL/L (21-32); CHLORIDE 110 MMOL/L (98-107); GFR ESTIMATED > 60; GLUCOSE 82 MG/DL (70-105); POTASSIUM 4.1 MMOL/L (3.6-5.0); SODIUM 143 MMOL/L (135-145); TOTAL PROTEIN 7.2 GM/DL (6.4-8.2)
== END 2020-12-13 | disposition home or self-care (01) ==
LOC: ONC 14:18
PROVIDERS: ATTEND Internal Medicine Hematology & Oncology
DX: Z51.11 Encounter for antineoplastic chemotherapy (principal); C58 Malignant neoplasm of placenta; K14.0 Glossitis
CPT/HCPCS: 80053; G0463; 80048; 84702; 85025; 96372; 96401; 99213; 99214

== ENCOUNTER 2021-01-10 13:19 | Outpatient (RCR) | payer MEDICAID ==
[2020-12-14 13:15] LABS: BASOPHILS % (AUTO) 1 % (0-10); EOSINOPHILS # (AUTO) 0.2 10^3/uL (0.0-0.3); EOSINOPHILS % (AUTO) 3 % (0-10); HEMATOCRIT 40 % (35-52); HEMOGLOBIN 12.8 g/dL (11.5-16.0); LYMPHOCYTES # (AUTO) 1.8 10^3/uL (1.0-4.0); LYMPHOCYTES % (AUTO) 25 % (12-44); MEAN CORPUSCULAR HEMOGLOBIN 29 pg (25-34); MEAN CORPUSCULAR HGB CONC 32 g/dL (32-36); MEAN CORPUSCULAR VOLUME 92 fL (80-99); MEAN PLATELET VOLUME 10.3 fL (9.0-12.2); MONOCYTES # (AUTO) 0.5 10^3/uL (0.0-1.0); MONOCYTES % (AUTO) 8 % (0-12); NEUTROPHILS # (AUTO) 4.4 10^3/uL (1.8-7.8); NEUTROPHILS % (AUTO) 63 % (42-75); PLATELET COUNT 340 10^3/uL (130-400); WHITE BLOOD COUNT 6.9 10^3/uL (4.3-11.0)
[2020-12-14 13:34] LABS: ALANINE AMINOTRANSFERASE 14 U/L (0-55); ALBUMIN 4.3 GM/DL (3.2-4.5); ALKALINE PHOSPHATASE 95 U/L (40-136); BILIRUBIN,TOTAL 0.6 MG/DL (0.1-1.0); BUN/CREATININE RATIO 20; CALCIUM 8.5 MG/DL (8.5-10.1); CARBON DIOXIDE 24 MMOL/L (21-32); CHLORIDE 106 MMOL/L (98-107); CREATININE SERUM 0.76 MG/DL (0.60-1.30); GFR ESTIMATED > 60; GLUCOSE 78 MG/DL (70-105); POTASSIUM 3.9 MMOL/L (3.6-5.0); SODIUM 139 MMOL/L (135-145); TOTAL PROTEIN 7.4 GM/DL (6.4-8.2)
[~2021-01-10 13:19] MED LIST changes: -METHOTREXATE 25 MG/ML IM SCH; -TBO-FILGRASTIM 480 MCG/0.8 ML (GRANIX) CANCER CTR SQ ONE
[2021-01-10 13:32] LABS: BASOPHILS # (AUTO) 0.1 10^3/uL (0.0-0.1); BASOPHILS % (AUTO) 1 % (0-10); EOSINOPHILS # (AUTO) 0.1 10^3/uL (0.0-0.3); EOSINOPHILS % (AUTO) 2 % (0-10); HEMATOCRIT 36 % (35-52); HEMOGLOBIN 11.6 g/dL (11.5-16.0); LYMPHOCYTES # (AUTO) 1.4 10^3/uL (1.0-4.0); LYMPHOCYTES % (AUTO) 25 % (12-44); MEAN CORPUSCULAR HEMOGLOBIN 30 pg (25-34); MEAN CORPUSCULAR HGB CONC 32 g/dL (32-36); MEAN CORPUSCULAR VOLUME 94 fL (80-99); MEAN PLATELET VOLUME 10.3 fL (9.0-12.2); MONOCYTES # (AUTO) 0.4 10^3/uL (0.0-1.0); MONOCYTES % (AUTO) 8 % (0-12); NEUTROPHILS # (AUTO) 3.6 10^3/uL (1.8-7.8); NEUTROPHILS % (AUTO) 64 % (42-75); PLATELET COUNT 286 10^3/uL (130-400); WHITE BLOOD COUNT 5.5 10^3/uL (4.3-11.0)
[2021-01-10 13:50] LABS: ALANINE AMINOTRANSFERASE 11 U/L (0-55); ALBUMIN 3.8 GM/DL (3.2-4.5); ALKALINE PHOSPHATASE 61 U/L (40-136); BILIRUBIN,TOTAL 0.8 MG/DL (0.1-1.0); BUN/CREATININE RATIO 20; CALCIUM 8.6 MG/DL (8.5-10.1); CARBON DIOXIDE 28 MMOL/L (21-32); CHLORIDE 106 MMOL/L (98-107); CREATININE SERUM 0.82 MG/DL (0.60-1.30); GFR ESTIMATED > 60; GLUCOSE 81 MG/DL (70-105); POTASSIUM 4.1 MMOL/L (3.6-5.0); SODIUM 138 MMOL/L (135-145); TOTAL PROTEIN 6.7 GM/DL (6.4-8.2)
== END 2021-03-14 | disposition home or self-care (01) ==
LOC: ONC 13:19
PROVIDERS: ATTEND Internal Medicine Hematology & Oncology
DX: Z51.11 Encounter for antineoplastic chemotherapy (principal); C58 Malignant neoplasm of placenta; K14.0 Glossitis
CPT/HCPCS: 80053; 84702; 85025; G0463; 99213

== ENCOUNTER → 2021-02-14 | Outpatient (CLI) | payer MEDICAID | LOC: LAB FS 15:09 | PROVIDERS: ATTEND Nurse Practitioner Adult Health | DX: Z51.11 Encounter for antineoplastic chemotherapy (principal); C58 Malignant neoplasm of placenta | CPT/HCPCS: 36415; 84702 ==

== ENCOUNTER → 2021-03-14 | Outpatient (CLI) | payer MEDICAID | LOC: LAB FS 13:05 | PROVIDERS: ATTEND Nurse Practitioner Adult Health | DX: Z51.11 Encounter for antineoplastic chemotherapy (principal); C58 Malignant neoplasm of placenta | CPT/HCPCS: 36415; 84702 ==

== ENCOUNTER 2021-04-10 13:42 | Outpatient (RCR) | payer MEDICAID ==
[2021-04-10 13:56] LABS: BASOPHILS % (AUTO) 1 % (0-10); EOSINOPHILS # (AUTO) 0.1 10^3/uL (0.0-0.3); EOSINOPHILS % (AUTO) 2 % (0-10); HEMATOCRIT 39 % (35-52); HEMOGLOBIN 12.6 g/dL (11.5-16.0); LYMPHOCYTES # (AUTO) 1.6 10^3/uL (1.0-4.0); LYMPHOCYTES % (AUTO) 24 % (12-44); MEAN CORPUSCULAR HEMOGLOBIN 30 pg (25-34); MEAN CORPUSCULAR HGB CONC 33 g/dL (32-36); MEAN CORPUSCULAR VOLUME 92 fL (80-99); MEAN PLATELET VOLUME 10.3 fL (9.0-12.2); MONOCYTES # (AUTO) 0.4 10^3/uL (0.0-1.0); MONOCYTES % (AUTO) 7 % (0-12); NEUTROPHILS # (AUTO) 4.4 10^3/uL (1.8-7.8); NEUTROPHILS % (AUTO) 67 % (42-75); PLATELET COUNT 303 10^3/uL (130-400); WHITE BLOOD COUNT 6.6 10^3/uL (4.3-11.0)
[2021-04-10 14:16] LABS: ALBUMIN 3.8 GM/DL (3.2-4.5); BILIRUBIN,TOTAL 0.4 MG/DL (0.1-1.0); CALCIUM 9.1 MG/DL (8.5-10.1); CREATININE SERUM 0.83 MG/DL (0.60-1.30); POTASSIUM 4.2 MMOL/L (3.6-5.0); TOTAL PROTEIN 6.9 GM/DL (6.4-8.2)
== END 2021-07-09 | disposition home or self-care (01) ==
LOC: ONC 13:42
PROVIDERS: ATTEND Internal Medicine Hematology & Oncology
DX: C58 Malignant neoplasm of placenta (principal); K14.0 Glossitis; Z92.21 Personal history of antineoplastic chemotherapy
CPT/HCPCS: 80053; 84702; 85025; G0463; 99213

== ENCOUNTER → 2021-06-11 | Outpatient (CLI) | payer MEDICAID | LOC: LAB FS 08:18 | PROVIDERS: ATTEND Internal Medicine Hematology & Oncology | DX: C58 Malignant neoplasm of placenta (principal) | CPT/HCPCS: 36415; 84702 ==

== ENCOUNTER 2021-07-16 14:32 | Outpatient (RCR) | payer MEDICAID ==
[2021-07-16 14:43] LABS: BASOPHILS # (AUTO) 0.1 10^3/uL (0.0-0.1); BASOPHILS % (AUTO) 1 % (0-10); EOSINOPHILS # (AUTO) 0.2 10^3/uL (0.0-0.3); EOSINOPHILS % (AUTO) 2 % (0-10); HEMATOCRIT 39 % (35-52); HEMOGLOBIN 12.7 g/dL (11.5-16.0); LYMPHOCYTES # (AUTO) 1.9 10^3/uL (1.0-4.0); LYMPHOCYTES % (AUTO) 25 % (12-44); MEAN CORPUSCULAR HEMOGLOBIN 31 pg (25-34); MEAN CORPUSCULAR HGB CONC 32 g/dL (32-36); MEAN CORPUSCULAR VOLUME 95 fL (80-99); MEAN PLATELET VOLUME 10.3 fL (9.0-12.2); MONOCYTES # (AUTO) 0.7 10^3/uL (0.0-1.0); MONOCYTES % (AUTO) 8 % (0-12); NEUTROPHILS % (AUTO) 64 % (42-75); PLATELET COUNT 326 10^3/uL (130-400); WHITE BLOOD COUNT 7.9 10^3/uL (4.3-11.0)
[2021-07-16 14:56] LABS: ALBUMIN 3.9 GM/DL (3.2-4.5); BILIRUBIN,TOTAL 0.3 MG/DL (0.1-1.0); CREATININE SERUM 0.8 MG/DL (0.60-1.30); POTASSIUM 4.4 MMOL/L (3.6-5.0)
== END 2021-08-24 | disposition home or self-care (01) ==
LOC: ONC 14:32
PROVIDERS: ATTEND Internal Medicine Hematology & Oncology
DX: Z51.11 Encounter for antineoplastic chemotherapy (principal); C58 Malignant neoplasm of placenta; K14.0 Glossitis; Z92.21 Personal history of antineoplastic chemotherapy; Z79.899 Other long term (current) drug therapy
CPT/HCPCS: 80053; 84443; 84702; 85025; G0463; 99213

== ENCOUNTER → 2021-09-10 | Outpatient (CLI) | payer MEDICAID | LOC: LAB FS 12:17 | PROVIDERS: ATTEND Nurse Practitioner Adult Health | DX: C58 Malignant neoplasm of placenta (principal) | CPT/HCPCS: 36415; 84702 ==

== ENCOUNTER → 2021-12-27 | Outpatient (CLI) | payer MEDICAID | LOC: LABNPT 14:29 | PROVIDERS: ATTEND Obstetrics & Gynecology | DX: Z01.419 Encounter for gynecological examination (general) (routine) without abnormal findings (principal); R30.9 Painful micturition, unspecified | CPT/HCPCS: 87077; 87088 ==

== ENCOUNTER 2022-02-04 21:48 | Emergency (ER) | payer MEDICAID ==
[2022-02-04 22:46] LABS: BILIRUBIN,URINE NEGATIVE (NEGATIVE); CLARITY,URINE CLEAR; COLOR,URINE YELLOW; GLUCOSE, URINE (UA) NEGATIVE (NEGATIVE); KETONES,URINE 1+ (NEGATIVE); LEUKOCYTE ESTERASE ,URINE NEGATIVE (NEGATIVE); NITRITE,URINE NEGATIVE (NEGATIVE); PH,URINE 6.5 (5-9); PROTEIN,URINE NEGATIVE (NEGATIVE)
[2022-02-04 22:57] LABS: BACTERIA,URINE NEGATIVE /HPF; SQUAMOUS EPITHELIAL CELL,UR 0-2 /HPF; WBC,URINE 0-2 /HPF
[2022-02-04] MEDS ORDERED: IOHEXOL 350 MG/ML 100 ML (OMNIPAQUE 350) VIAL IV ONE (23:00)
[2022-02-04] MEDS ORDERED: NS 100 ML (IVPB) BAG IV ONE (23:00)
[2022-02-04] MEDS ORDERED: HOLD METFORMIN - RECEIVED CONTRAST 20 ML VIAL IV SCH (23:00)
--- NOTE | 2022-02-04 23:03 | ED GU-Female ---
General Chief Complaint: - Reproductive Stated Complaint: PELVIC PAIN Nursing Triage Note: TO ED VIA POV AND AMBULATORY TO ROOM 6 WITH C/O PELVIC PAIN. Source: patient Exam Limitations: no limitations History of Present Illness Date Seen by Provider: Feb 04, 2022 Time Seen by Provider: 21:50 Initial Comments 26-year-old female with past medical history of choriocarcinoma coming in due to lower abdominal pressure and burning pain. She specifically says there is no pain with urination, just feels like there is a lot of pressure in her lower abdomen. She says last time she is worried that the choriocarcinoma could be back. She does get beta-hCGs drawn to monitor it, and they have been good. She had a D&C after being diagnosed with it and also had chemotherapy. Denies any vomiting, diarrhea, fever, chest pain, shortness of breath, or any other concerns. Denies any vaginal bleeding, dysuria, does have normal discharge, but there is no scent to it. She is in a monogamous relationship Allergies and Home Medications Allergies Coded Allergies: No Known Drug Allergies (Unverified , 05/23/20) Patient Home Medication List Home Medication List Reviewed: Yes Acetaminophen (Acetaminophen) 500 Mg Tablet, 1,000 MG PO Q8HR Prescribed by: DARRON STILES on 05/24/20821 Acyclovir (Acyclovir) 400 Mg Tablet, 400 MG PO DAILY, (Reported) Entered as Reported by: COLEEN LEE on 05/23/201917 Ibuprofen (Ibu) 600 Mg Tablet, 600 MG PO Q6H Prescribed by: DARRON STILES on 05/24/20821 Ondansetron (Ondansetron Odt) 4 Mg Tab.rapdis, 4 MG PO Q6H PRN for NAUSEA/VOMITING-1ST LINE Prescribed by: MACIE LOBO on 02/05/22 0113 Vit W-Ca,Fe,FA(<1 mg) ( Vitamins) 1 Each Tablet, 1 EACH PO DAILY, (Reported) Entered as Reported by: COLEEN LEE on 05/23/201917 Review of Systems Review of Systems Constitutional: No chills, No fever EENTM: No blurred vision Respiratory: No cough Cardiovascular: No chest pain Gastrointestinal: abdominal pain, nausea; No vomiting Genitourinary: denies burning, denies discharge Musculoskeletal: no symptoms reported Skin: no symptoms reported Psychiatric/Neurological: No Symptoms Reported Endocrine: No Symptoms Reported Hematologic/Lymphatic: No Symptoms Reported All Other Systemes Reviewed Negative Unless Noted: Yes Past Tvpyvuo-Kkwtzo-Ugipsv Hx Patient Social History Tobacco Use?: No Substance use?: No Alcohol Use?: No Immunizations Up To Date Tetanus Booster (TDap): Less than 5yrs PED Vaccines UTD: Yes Seasonal Allergies Seasonal Allergies: No Past Medical History Surgeries: No Respiratory: No Currently Using CPAP: No Currently Using BIPAP: No Cardiac: No Neurological: No Female Reproductive Disorders: Denies Sexually Transmitted Disease: Yes (HSV) HIV/AIDS: No Genitourinary: No Gastrointestinal: No Musculoskeletal: No Endocrine: No HEENT: No Cancer: No Psychosocial: No Integumentary: No Blood Disorders: No Adverse Reaction/Blood Tranf: No Family Medical History FH: brain cancer GRANDMOTHER, PATERNAL FH: breast cancer GRANDMOTHER, PATERNAL Gregorio thyroiditis GRANDMOTHER, MATERNAL Physical Exam Vital Signs Vital Signs - First Documented 02/04/22 22:33 Temp 36.6 Pulse 67 Resp 16 B/P (MAP) 140/85 (103) Pulse Ox 100 O2 Delivery Room Air Capillary Refill : Less Than 3 Seconds Height, Weight, BMI Height: 5'6.00" Weight: 162lbs. 0oz. 73.577133bo; 26.98 BMI Method:Stated General Appearance: WD/WN, no apparent distress HEENT: PERRL/EOMI, normal ENT inspection, pharynx normal Neck: non-tender, full range of motion, supple, normal inspection Cardiovascular: regular rate, rhythm, no edema, no murmur Respiratory: chest non-tender, lungs clear, normal breath sounds, no respiratory distress, no accessory muscle use Gastrointestinal: normal bowel sounds, soft; No distended, No guarding, No rebound; tenderness (lower abdomen) Back: normal inspection, no CVA tenderness, no vertebral tenderness Extremities: normal range of motion, non-tender, normal inspection, no pedal edema, no calf tenderness, normal capillary refill Neurologic/Psychiatric: no motor/sensory deficits, alert, normal mood/affect Skin: normal color, warm/dry Lymphatic: no adenopathy Progress/Results/Core Measures Suspected Sepsis SIRS Temperature: Pulse: 67 Respiratory Rate: 16 Laboratory Tests 02/04/22 23:00: White Blood Count 8.4 Blood Pressure 140 /85 Mean: 103 Laboratory Tests 02/04/22 23:00: Creatinine 0.80, Platelet Count 319, Total Bilirubin 0.5 Results/Orders Lab Results Laboratory Tests Test 02/04/22 22:33 02/04/22 23:00 Range/Units Urine Color YELLOW Urine Clarity CLEAR Urine pH 6.5 5-9 Urine Specific [place] 1.025 H 1.016-1.022 Urine Protein NEGATIVE NEGATIVE Urine Glucose (UA) NEGATIVE NEGATIVE Urine Ketones 1+ H NEGATIVE Urine Nitrite NEGATIVE NEGATIVE Urine Bilirubin NEGATIVE NEGATIVE Urine Urobilinogen 0.2 < = 1.0 MG/DL Urine Leukocyte Esterase NEGATIVE NEGATIVE Urine RBC (Auto) NEGATIVE NEGATIVE Urine RBC NONE /HPF Urine WBC 0-2 /HPF Urine Squamous Epithelial Cells 0-2 /HPF Urine Renal Epithelial Cells NONE /HPF Urine Crystals NONE /LPF Urine Bacteria NEGATIVE /HPF Urine Casts NONE /LPF Urine Mucus MODERATE H /LPF Urine Culture Indicated NO White Blood Count 8.4 4.3-11.0 10^3/uL Red Blood Count 3.96 3.80-5.11 10^6/uL Hemoglobin 12.0 11.5-16.0 g/dL Hematocrit 37 35-52 % Mean Corpuscular Volume 93 80-99 fL Mean Corpuscular Hemoglobin 30 25-34 pg Mean Corpuscular Hemoglobin Concent 33 32-36 g/dL Red Cell Distribution Width 12.4 10.0-14.5 % Platelet Count 319 130-400 10^3/uL Mean Platelet Volume 9.9 9.0-12.2 fL Immature Granulocyte % (Auto) 0 % Neutrophils (%) (Auto) 65 42-75 % Lymphocytes (%) (Auto) 25 12-44 % Monocytes (%) (Auto) 8 0-12 % Eosinophils (%) (Auto) 1 0-10 % Basophils (%) (Auto) 1 0-10 % Neutrophils # (Auto) 5.5 1.8-7.8 10^3/uL Lymphocytes # (Auto) 2.1 1.0-4.0 10^3/uL Monocytes # (Auto) 0.7 0.0-1.0 10^3/uL Eosinophils # (Auto) 0.1 0.0-0.3 10^3/uL Basophils # (Auto) 0.0 0.0-0.1 10^3/uL Immature Granulocyte # (Auto) 0.0 0.0-0.1 10^3/uL Sodium Level 141 135-145 MMOL/L Potassium Level 4.0 3.6-5.0 MMOL/L Chloride Level 106 98-107 MMOL/L Carbon Dioxide Level 23 21-32 MMOL/L Anion Gap 12 5-14 MMOL/L Blood Urea Nitrogen 20 H 7-18 MG/DL Creatinine 0.80 0.60-1.30 MG/DL Estimat Glomerular Filtration Rate 104 BUN/Creatinine Ratio 25 Glucose Level 88 70-105 MG/DL Calcium Level 9.3 8.5-10.1 MG/DL Corrected Calcium 9.0 8.5-10.1 MG/DL Total Bilirubin 0.5 0.1-1.0 MG/DL Aspartate Amino Transf (AST/SGOT) 28 5-34 U/L Alanine Aminotransferase (ALT/SGPT) 36 0-55 U/L Alkaline Phosphatase 70 40-136 U/L Total Protein 7.2 6.4-8.2 GM/DL Albumin 4.4 3.2-4.5 GM/DL My Orders Orders - MACIE LOBO MD Urine Bedside (02/04/22 22:11) Ua Culture If Indicated (02/04/22 22:11) Comprehensive Metabolic Panel (02/04/22 22:54) Cbc With Automated Diff (02/04/22 22:54) Ct Abdomen/Pelvis W (02/04/22 22:54) Iohexol Injection (Omnipaque 350 Mg/Ml 1 (02/04/22 23:00) Received Contrast (Hold Metformin- Contr (02/04/22 23:00) Ns (Ivpb) (Sodium Chloride 0.9% Ivpb Bag (02/04/22 23:00) Neis Ady Dna Urine Test (02/04/22 23:08) Chlamydia Trachomatis Urine (02/04/22 23:08) Vital Signs/I&O 02/04/22 22:33 Temp 36.6 Pulse 67 Resp 16 B/P (MAP) 140/85 (103) Pulse Ox 100 O2 Delivery Room Air Capillary Refill : Less Than 3 Seconds Blood Pressure Mean: 103 Progress Note : Progress Note 26-year-old female coming in due to lower abdominal discomfort. ABCs were intact and vitals were stable on presentation. Physical exam with mild lower abdominal discomfort but no signs of peritonitis. Not having any urinary symptoms or significant concerns for STI. Basic labs obtained and are reassuring. CT abdomen pelvis with potential enteritis which could fit her symptoms. I recommend symptomatic management given she is not having any bloody diarrhea or concerns for invasive infection. I will have her follow-up with OB if things are not improving given her prior history. She was then discharged home in stable condition with strict return precautions Departure Impression Primary Impression: Lower abdominal pain Additional Impression: Enteritis Disposition: HOME, SELF-CARE Condition: Stable Departure-Patient Inst. Decision time for Depature: 01:11 Referrals: NO,LOCAL PHYSICIAN (PCP/Family) Primary Care Physician Patient Instructions: Abdominal Pain, Adult ED Add. Discharge Instructions: The CT showed enteritis which just means inflammation of your small bowel. Most commonly this is from a virus that will pass. If you begin having bright red blood in the significant mount in your stool then I would want you to come back to the ER. Most of the time this passes. Take ibuprofen and/or Tylenol as needed for pain. I sent nausea medicine to your pharmacy if you would need. Your things are not improving I would follow back up with your OB for evaluation for other causes like we discussed Scripts Ondansetron (Ondansetron Odt) 4 Mg Tab.rapdis 4 MG PO Q6H PRN for NAUSEA/VOMITING-1ST LINE for 5 Days, #20 TAB Prov: MACIE LOBO MD 02/05/22 Work/School Note: Work Release Form Date Seen in the Emergency Department: Feb 05, 2022 Return to Work: Feb 06, 2022 Restrictions: No Restrictions MACIE LOBO MD Feb 04, 2022 23:03
[2022-02-04 23:06] LABS: BASOPHILS % (AUTO) 1 % (0-10); EOSINOPHILS # (AUTO) 0.1 10^3/uL (0.0-0.3); EOSINOPHILS % (AUTO) 1 % (0-10); HEMATOCRIT 37 % (35-52); LYMPHOCYTES # (AUTO) 2.1 10^3/uL (1.0-4.0); LYMPHOCYTES % (AUTO) 25 % (12-44); MEAN CORPUSCULAR HEMOGLOBIN 30 pg (25-34); MEAN CORPUSCULAR HGB CONC 33 g/dL (32-36); MEAN CORPUSCULAR VOLUME 93 fL (80-99); MEAN PLATELET VOLUME 9.9 fL (9.0-12.2); MONOCYTES # (AUTO) 0.7 10^3/uL (0.0-1.0); MONOCYTES % (AUTO) 8 % (0-12); NEUTROPHILS # (AUTO) 5.5 10^3/uL (1.8-7.8); NEUTROPHILS % (AUTO) 65 % (42-75); PLATELET COUNT 319 10^3/uL (130-400); WHITE BLOOD COUNT 8.4 10^3/uL (4.3-11.0)
[2022-02-04 23:26] LABS: ALBUMIN 4.4 GM/DL (3.2-4.5)
[2022-02-04 23:28] LABS: CALCIUM 9.3 MG/DL (8.5-10.1)
[2022-02-04 23:29] LABS: TOTAL PROTEIN 7.2 GM/DL (6.4-8.2)
[2022-02-04 23:31] LABS: BILIRUBIN,TOTAL 0.5 MG/DL (0.1-1.0)
[2022-02-04 23:33] LABS: CREATININE SERUM 0.8 MG/DL (0.60-1.30)
[2022-02-05] MEDS ORDERED: ONDA4TAB11 PO ×2 (01:13→01:50)
[2022-02-05 01:40] VITALS: BP 90/52
--- NOTE | 2022-02-05 06:09 | Diagnostic Imaging Report ---
EXAMINATION: CT abdomen and pelvis with intravenous contrast. TECHNIQUE: Multiple contiguous axial images were obtained through the abdomen and pelvis after the uneventful administration of intravenous contrast. All CT scans use one or more of the following dose optimizing techniques: automated exposure control, MA and/or KvP adjustment based on patient size and exam type or iterative reconstruction. HISTORY: lower abdominal pain COMPARISON: 09/06/2020 FINDINGS: Lung bases: The lung bases are clear. Solid organs: The liver is normal without focal lesion. The gallbladder is normal. There is no biliary ductal dilation. Pancreas is normal. Spleen is normal. Adrenal glands are normal. The kidneys are normal without hydronephrosis. Bowel: The stomach and small bowel are normal without obstruction. The colon and appendix are normal. Peritoneum: There is no intraperitoneal free fluid or free air. No suspicious lymphadenopathy. Vasculature: Normal without aneurysm. Musculoskeletal: No suspicious osseous lesion or compression fracture. Pelvis: The uterus and adnexa are normal. The urinary bladder is nondistended. IMPRESSION: 1. No acute abnormality in the abdomen or pelvis. 2. Agree with preliminary interpretation. Dictated by: Dictated on workstation # [id number]
== END 2022-02-05 01:40 | disposition home or self-care (01) ==
LOC: EDUNIT# 21:48 → ER 21:49
DX: K52.9 Noninfective gastroenteritis and colitis, unspecified (principal); Z85.44 Personal history of malignant neoplasm of other female genital organs
CPT/HCPCS: 36415; 74177; 80053; 81000; 84703; 85025; 87491; 87591